=== PATIENT | male | born 1950 | race Caucasian/White ===

== ENCOUNTER 2022-08-22 20:35 | Emergency (ER) | payer MEDICARE, SELFPAY ==
[2022-08-22 20:38] VITALS: BP 138/86; PULSE 121; RESP 20; TEMP 36.3; O2SAT 98; BMI 24.4
--- NOTE | 2022-08-22 20:43 | XRR_ITS ---
PROCEDURE INFORMATION: Exam: XR Chest Exam date and time: 08/22/2022 8:49 PM Age: 72 years old Clinical indication: Shortness of breath; Additional info: Cp TECHNIQUE: Imaging protocol: Radiologic exam of the chest. Views: 1 view. COMPARISON: CR XR chest 1V [id number] 09/11/2018 6:18 AM FINDINGS: Tubes, catheters and devices: Monitor leads project over the chest. Lungs: No significant or acute findings. No consolidation. Pleural spaces: No significant costophrenic angle blunting. No pneumothorax. Heart/Mediastinum: Heart size is normal. Vasculature: Atherosclerotic tortuosity of the thoracic aorta. Bones/joints: No acute osseous abnormality. Soft tissues: Left hemithorax skin fold noted. XR/XR chest 1V portable [id number] IMPRESSION: No acute abnormality demonstrated.
--- NOTE | 2022-08-22 20:43 | ECG_ITS ---
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 Measurements Intervals [place] Rate: 114 P: 81 CA: 167 QRS: 99 QRSD: 112 T: 40 QT: 360 QTc: 498 Interpretive Statements SINUS TACHYCARDIA BORDERLINE RIGHT AXIS DEVIATION [QRS AXIS > 90] INCOMPLETE RIGHT BUNDLE BRANCH BLOCK [90+ ms QRS DURATION, TERMINAL R IN V1/V2, 40+ ms S IN I/aVL/V4/V5/V6] POSSIBLE ANTERIOR MYOCARDIAL INFARCTION , PROBABLY OLD [30 ms Q WAVE IN V3/V4, OR R < 0.2 mV IN V4] ABNORMAL RHYTHM ECG Compared to ECG 09/11/2018 13:22:15 Incomplete right bundle-branch block now present Sinus rhythm no longer present Myocardial infarct finding still present Electronically Signed On 08-22-2022 21:36:03 CDT by Amanda Mckinley M.D. [id number]
--- NOTE | 2022-08-22 20:44 | ECG_ITS ---
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 Measurements Intervals [place] Rate: 101 P: 56 MD: 181 QRS: 79 QRSD: 83 T: 72 QT: 407 QTc: 528 Interpretive Statements SINUS TACHYCARDIA ABNORMAL RHYTHM ECG Compared to ECG 08/22/2022 20:39:49 Incomplete right bundle-branch block no longer present Myocardial infarct finding no longer present Electronically Signed On 08-22-2022 21:35:46 CDT by Amanda Mckinley M.D. [id number]
[2022-08-22 20:54] VITALS: BP 148/95; PULSE 109; RESP 26; O2SAT 100
--- NOTE | 2022-08-22 21:14 | ED_ITS ---
HPI - SOB/Dyspnea General: Chief Complaint: Shortness of Breath/Dyspnea Stated Complaint: SOB\Lings Hurt Time Seen by Provider: 08/22/22 20:43 Source: patient Mode of arrival: ambulatory Limitations: no limitations History of Present Illness: HPI Narrative: 72-year-old male states he fell into some cold water 2 weeks ago he states been having some dyspnea since then he is scared he has pneumonia he is quite anxious here he is tachycardic tachypneic states been having some chest pain and felt like he cannot breathe he denies any cough denies any fever denies any worsening improving factors. Associated symptoms: Deny abdominal pain, chest pain, fever(s), nausea or vomiting Review of Systems Const: Denies: fever(s), chills, body aches or change in appetite Eyes: Denies: eye discomfort ENMT: Denies: throat pain or dental pain Card: Denies: chest pain Resp: Reports: dyspnea; Denies: non-productive cough GI: Denies: abdominal pain, nausea, vomiting or diarrhea : Denies: dysuria Musc: Denies: neck pain or back pain Skin/Breast: Denies: rash Neuro: Denies: headache(s) Physical Exam Const: COMMON NORMALS: no acute distress, patient oriented x3 and healthy appearing GENERAL APPEARANCE: anxious HENMT: COMMON NORMALS: normocephalic and atraumatic HEAD & SCALP: normocephalic and atraumatic Neck/C-Spine: COMMON NORMALS: full ROM and supple Chest: COMMONS NORMALS: normal inspection of the chest and normal palpation of entire chest wall Resp: COMMON NORMALS: normal respiratory effort, No retractions, No use of accessory muscles and clear to auscultation bilaterally EFFORT & INSPECTION: Yes tachypneic AUSCULTATION: clear to auscultation bilaterally Cardio: COMMON NORMALS: regular rhythm and No murmurs present (Cardio) RATE: tachycardic RHYTHM: regular rhythm GI: COMMON NORMALS: Normal to inspection, nondistended, normoactive bowel sounds present, Soft to palpation, non-tender and no masses PALPATION: Yes Soft to palpation Extremity: COMMON NORMALS: normal to inspection and full ROM Neuro: COMMON NORMALS: patient oriented x3, moves all extremities and no focal motor deficits Psych: COMMON NORMALS: mental status grossly normal, Normal thought process present and cooperative THOUGHT PROCESS: Normal thought process present Skin: COMMON NORMALS: no rashes or lesions noted and no wounds GENERAL SKIN EXAM: no rashes or lesions noted Course Vital Signs: Vital signs: Vital Signs Temperature 97.4 F L 08/22/22 20:38 Pulse Rate 91 08/22/22 23:37 Respiratory Rate 18 08/22/22 23:37 Blood Pressure 141/93 08/22/22 23:37 Pulse Oximetry 98 08/22/22 23:37 Oxygen Delivery Me thod Room Air 08/22/22 23:17 MDM - SOB/Dyspnea Medical Decision Making Patient presents with dyspnea with possible pneumonia he is well-appearing here in no distress he has some anxiety we will place him on Keflex he is stable for discharge he is to follow-up with his PCP and return if worsening. Lab Data I reviewed the patient's lab results. 08/22/22 20:50 08/22/22 20:50 Labs/Radiology: Radiology Impressions Chest X-Ray 08/22/22 20:43 IMPRESSION: No acute abnormality demonstrated. Laboratory Results WBC 15.7 10^3/uL (4.0-10.0) H 08/22/22 20:50 RBC 5.09 10^6/uL (4.1-5.3) 08/22/22 20:50 Hgb 16.5 g/dL (11.7-16.6) 08/22/22 20:50 Hct 48.2 % (42.0-52.0) 08/22/22 20:50 MCV 94.7 fl (80-94) H 08/22/22 20:50 MCH 32.4 pg (28.0-34.0) 08/22/22 20:50 MCHC 34.2 g/dL (30.0-36.0) 08/22/22 20:50 RDW 12.6 % (12.1-15.1) 08/22/22 20:50 Plt Count 276 10^3/cmm (130-400) 08/22/22 20:50 MPV 9.6 fL (7.4-10.4) 08/22/22 20:50 Neut % (Auto) 76.7 % 08/22/22 20:50 Lymph % (Auto) 18.0 % 08/22/22 20:50 [place] % (Auto) 4.1 % 08/22/22 20:50 Eos % (Auto) 0.2 % 08/22/22 20:50 Baso % (Auto) 0.4 % 08/22/22 20:50 Neut # (Auto) 12.03 10^3/uL (1.8-7.7) H 08/22/22 20:50 Lymph # (Auto) 2.8 10^3/uL (0.8-4.8) 08/22/22 20:50 [place] # (Auto) 0.7 10^3/uL (0.2-0.9) 08/22/22 20:50 Eos # (Auto) 0.0 10^3/uL (0.0-0.8) 08/22/22 20:50 Baso # (Auto) 0.1 10^3/uL (0.0-0.1) 08/22/22 20:50 Nucleated RBC % (auto) 0 % 08/22/22 20:50 Nucleated RBCs # 0.0 /100WBC 08/22/22 20:50 D-Dimer 0.34 ug/mIFEU (0-0.59) 08/22/22 20:50 Sodium 139 mmol/L (136-145) 08/22/22 20:50 Potassium 4.1 mmol/L (3.5-5.1) 08/22/22 20:50 Chloride 98 mmol/L (98-107) 08/22/22 20:50 Carbon Dioxide 19 mmol/L (22-29) L 08/22/22 20:50 Anion Gap 26.1 (5-19) H 08/22/22 20:50 BUN 16 mg/dL (8-23) 08/22/22 20:50 Creatinine 1.1 mg/dL (0.7-1.2) 08/22/22 20:50 GFR Calculation Not Reportable 08/22/22 20:50 Glucose 181 mg/dL (65-115) H 08/22/22 20:50 Calculated Osmolality 294 mOsm/kg (285-295) 08/22/22 20:50 Calcium 9.7 mg/dL (8.5-10.5) 08/22/22 20:50 Total Bilirubin 0.7 mg/dL (0.15-1.2) 08/22/22 20:50 AST 33 U/L (0-40) 08/22/22 20:50 ALT 50 U/L (0-41) H 08/22/22 20:50 Alkaline Phosphatase 93 U/L (40-130) 08/22/22 20:50 Troponin T Baseline 22 ng/L (0-15) H 08/22/22 20:50 Troponin T 120 Minute 20.27 ng/L (0-15) H 08/22/22 22:35 Delta Troponin T -1.73 ABS# (0-10) L 08/22/22 22:35 NT-Pro-B Natriuret Pep 671 pg/mL (0-125) H 08/22/22 20:50 Total Protein 7.9 g/dL (6.6-8.7) 08/22/22 20:50 Albumin 5.0 g/dL (3.5-5.2) 08/22/22 20:50 Globulin 2.9 g/dL (1.3-4.6) 08/22/22 20:50 Lipase 28 U/L (13-60) 08/22/22 20:50 EKG Data EKG 1: I personally reviewed and interpreted this EKG as follows: EKG Interpretation Date: 08/22/22 EKG interpretation time: 20:39 Interpretation: sinus tach hr [address] or t wave abnormalities qrs 112 qtc 428 Discharge Plan Discharge Patient Disposition: Home Clinical Impression: Dyspnea Condition: Stable Prescriptions: New cephalexin 500 mg capsule 500 mg PO TID 7 Days Qty: 21 0RF No Action gabapentin 600 mg tablet 600 mg PO BID pantoprazole 20 mg tablet,delayed release (DR/EC) 20 mg PO DAILY Levemir U-100 Insulin 100 unit/mL solution 30 unit SUBCUT DAILY lisinopril-hydrochlorothiazide 20-12.5 mg tablet 1 tab PO DAILY sildenafil [Viagra] 50 mg tablet 50 mg PO DAILY PRN testosterone cypionate 200 mg/mL kit 200 mg IM Q7D Discharge Orders: Discharge ED (Routine); Ordered 08/22/22 Ordered By: Parul Lazo Referrals: Jane Dhaliwal [Primary Care Provider] - 4-7 days Discharge Diet: Advance as tolerated Discharge Activity: Resume usual activity Patient Instructions: Dyspnea (ED) Coding Level of Care Code ED Commercial Project Manager for Chg Federico
[2022-08-22 21:30] LABS: Basophils # 0.1 10^3/uL (0.0-0.1); Basophils % 0.4 %; Eosinophils % 0.2 %; Hematocrit 48.2 % (42.0-52.0); Hemoglobin 16.5 g/dL (11.7-16.6); Lymphocytes # 2.8 10^3/uL (0.8-4.8); Mean Corpuscular HGB Conc 34.2 g/dL (30.0-36.0); Mean Corpuscular Hemoglobin 32.4 pg (28.0-34.0); Mean Corpuscular Volume 94.7 fl (80-94); Mean Platelet Volume 9.6 fL (7.4-10.4); Monocytes # 0.7 10^3/uL (0.2-0.9); Monocytes % 4.1 %; Neutrophils # 12.03 10^3/uL (1.8-7.7); Neutrophils % 76.7 %; Nucleated Red Blood Cells % 0 %; Platelet Count 276 10^3/cmm (130-400); Red Blood Count 5.09 10^6/uL (4.1-5.3); Red Cell Distribution Width 12.6 % (12.1-15.1); White Blood Count 15.7 10^3/uL (4.0-10.0)
[2022-08-22 21:31] LABS: Troponin(5th) Baseline 22 ng/L (0-15)
[2022-08-22] MEDS: aspirin 81 mg Chew Tablet 324 MG PO (21:39)
[2022-08-22] MEDS: ondansetron 2 mg/ML SDV 2 mL 4 MG IVP (21:39)
[2022-08-22] MEDS: LORazepam 2 mg/mL INJ 1 mL 0.5 MG IVP (21:39)
[2022-08-22 21:40] LABS: Alanine Aminotransferase 50 U/L (0-41); Alkaline Phosphatase 93 U/L (40-130); Anion Gap 26.1 (5-19); Aspartate Amino Transferase 33 U/L (0-40); Blood Urea Nitrogen 16 mg/dL (8-23); Calcium 9.7 mg/dL (8.5-10.5); Carbon Dioxide 19 mmol/L (22-29); Chloride 98 mmol/L (98-107); Globulin 2.9 g/dL (1.3-4.6); Glucose 181 mg/dL (65-115); NT Pro B Type Natriuretic Pept 671 pg/mL (0-125); Osmolality Calculated 294 mOsm/kg (285-295); Potassium 4.1 mmol/L (3.5-5.1); Sodium 139 mmol/L (136-145); Total Bilirubin 0.7 mg/dL (0.15-1.2); Total Protein 7.9 g/dL (6.6-8.7)
[2022-08-22 21:57] LABS: D Dimer 0.34 ug/mIFEU (0-0.59)
[2022-08-22 22:00] LABS: Lipase 28 U/L (13-60)
[2022-08-22 22:15] VITALS: BP 162/109; PULSE 101; RESP 14; O2SAT 97
--- NOTE | 2022-08-22 22:44 | ECG_ITS ---
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 Measurements Intervals [place] Rate: 100 P: 25 VT: 177 QRS: 92 QRSD: 114 T: 48 QT: 403 QTc: 521 Interpretive Statements SINUS TACHYCARDIA BORDERLINE RIGHT AXIS DEVIATION [QRS AXIS > 90] INCOMPLETE RIGHT BUNDLE BRANCH BLOCK [90+ ms QRS DURATION, TERMINAL R IN V1/V2, 40+ ms S IN I/aVL/V4/V5/V6] ABNORMAL RHYTHM ECG Compared to ECG 08/22/2022 21:25:00 Incomplete right bundle-branch block now present Electronically Signed On 08-23-2022 16:37:03 CDT by Jacobo Barriga M.D. [id number]
[2022-08-22 23:03] LABS: Troponin 5 2HR 20.27 ng/L (0-15)
[2022-08-22 23:04] LABS: Troponin 5 2HR Delta -1.73 ABS# (0-10)
[2022-08-22] MEDS: labetalol 5 mg/mL SDV 20mL 10 MG IVP (23:10)
[2022-08-22 23:17] VITALS: BP 128/102; PULSE 92; RESP 18; O2SAT 97
[2022-08-22] MEDS: cephALEXin 500 mg Capsule PO (23:36)
[2022-08-22 23:37] VITALS: BP 141/93; PULSE 91; RESP 18; O2SAT 98
== END 2022-08-22 23:47 | disposition home or self-care (01) ==
PROVIDERS: Emergency Provider Emergency Medicine; PCP Internal Medicine
DX: R06.00 Dyspnea, unspecified (principal); Z79.4 Long term (current) use of insulin
CPT/HCPCS: 36415; 71045; 80053; 83690; 83880; 84484; 85025; 85378; 93005; 96374; 96375; 99285; J2060; J2405; J3490

== ENCOUNTER 2022-11-11 13:32 | Observation (INO) | payer MEDICARE, SELFPAY ==
[2022-11-11 14:29] VITALS: BMI 23.8
[2022-11-11 14:40] VITALS: BP 167/96; PULSE 95; RESP 18; TEMP 37; O2SAT 96
--- NOTE | 2022-11-11 14:54 | CT_ITS ---
WS: [id number] CT LEFT FOOT, NONCONTRAST HISTORY: Cellulitis, abscess, swelling Technique: All CT scans at [facility] use at least one of these dose optimization techniques: automated exposure control; mA and/or kV adjustment per patient size (includes targeted exams where dose is matched to clinical indication); or iterative reconstruction. DLP: 150.38 mGy.cm COMPARISON: None available. There is a large amount of soft tissue inflammation surrounding the first toe. Greatest at the IP rebecca nt. Along the plantar surface of the distal proximal phalanx and the proximal distal phalanx there ar e erosive changes and loss of the normal cortex. This is the area of greatest soft tissue edema. With out IV contrast cannot comment on abscess. There does appear to be destruction or erosions involving the phalanges of the first toe. The sesamoid bones of the first toe appear intact. Lisfranc articulation is normal. Normal tarsometatarsal alignment. IMPRESSION: 1. Large amount of inflammation and soft tissue edema surrounding the first toe. 2. Erosions and loss of the normal cortex involving the plantar surface of the distal first phalanx a nd the proximal distal phalanx. Erosions associated with gout or osteomyelitis should be considered. Patient would benefit from a nonurgent MRI LEFT foot with attention to the toes with contrast.
--- NOTE | 2022-11-11 15:11 | ED_ITS ---
HPI - Extremity Problem General: Chief complaint: Extremity Injury, Lower Stated complaint: Left foot injury History of Present Illness: Patient is a 72-year-old male that presents to the emergency department with abscess to the left foot. Patient states he stepped on a rock approximately 3 weeks ago. He developed a wound that began draining approximately 1 week later. Patient arrives here 3 weeks after the injury with a 3 mm deep ulcer on the plantar surface of the great toe of the left foot. There is eschar on the dorsal aspect of the foot at the MTP joint of the great toe. 3+ pitting edema and erythema to the foot. Patient has been treating his infection at home with Epsom salt bath And has a documented history of insulin-dependent diabetes but reportedly discontinued use of his insulin back in February 2022. Reports that currently his hemoglobin A1c is 5.2. Patient also has a medical history of high cholesterol, hypertension Associated symptoms: Deny chest pain, fever(s) or rash Review of Systems General: Reports: 10 or more systems reviewed and unremarkable except in HPI and below Const: Denies: fever(s), chills, change in appetite, change in weight, fatigue or malaise Eyes: Denies: change in vision, eye discomfort, eye discharge or eye redness ENMT: Denies: throat pain, enlarged tonsils, odynophagia, hoarseness, ear or mastoid pain, ear discharge, change in hearing, tinnitus, nasal discharge, nasal congestion, post nasal drip or sinus pain Card: Denies: chest pain, palpitations, irregular heart rhythm, edema, dyspnea on exertion, orthopnea or leg pain with exertion Resp: Denies: dyspnea, productive cough, non-productive cough, wheezing, stridor or chest congestion GI: Denies: abdominal pain, nausea, vomiting, dysphagia, diarrhea, constipation, bloating, GI cramping or hematochezia : Denies: flank pain, dysuria, urinary frequency, urinary urgency, urinary hesitancy, oliguria or hematuria Musc: Denies: neck pain, back pain, extremity pain, joint pain, joint swelling, joint redness, joint warmth or muscle weakness Skin/Breast: Denies: rash, pruritus, erythema, photosensitivity or new lesions Neuro: Denies: headache(s), numbness in extremities, weakness in extremities, sensory changes, lack of coordination, difficulty walking, frequent falls, dizziness, confusion, Slurred speech present, difficulty communicating thoughts, seizure-like activity or involuntary movements Endo: Denies: polyuria, polydipsia or tired all the time Av/Lymph: Denies: easy bruising or easy bleeding PFS ED PFSH: Medical History (Updated 11/11/22 @ 17:25 by Danny Casarez MD) Diabetes Hypertension Neuropathy Surgical History (Updated 11/11/22 @ 17:26 by Danny Casarez MD) History of incision and drainage Family History (Updated 11/11/22 @ 17:26 by Danny Casarez MD) Father Alcohol use disorder Denies family history of Diabetes Social History (Updated 11/11/22 @ 17:27 by Danny Casarez MD) Smoking and tobacco status: never smoked Alcohol intake: never Substance/Drug Use: former Physical Exam Const: COMMON NORMALS: no acute distress, patient oriented x3 and alert GENERAL APPEARANCE: cooperative ORIENTATION/CONSCIOUSNESS: Yes awake, Yes oriented to person, Yes oriented to place and Yes oriented to time HENMT: COMMON NORMALS: normocephalic and atraumatic HEAD & SCALP: normocephalic and atraumatic FACE & SINUS: normal facial exam MOUTH: Normal oral and palatal mucosa present THROAT: posterior oropharynx normal Eye: COMMON NORMALS: Equal, round and reactive pupils present, EOMs intact mikey aterally, conjunctivae normal and no scleral icterus GENERAL EYE: appearance normal, both eyes and all related structures ALIGNMENT: Yes alignment normal PERIORBITAL: periorbital findings normal CONJUNCTIVA: Yes conjunctivae normal PUPIL: Yes Equal, round and reactive pupils present Neck/C-Spine: COMMON NORMALS: full ROM GENERAL: Yes normal visual inspection Lymph: LYMPHATIC: no lymphadenopathy noted Chest: COMMONS NORMALS: normal inspection of the chest Breast/axilla inspection: Yes no chest deformity, asymmetry, normal contours, no nodules, masses, tenderness Resp: COMMON NORMALS: normal respiratory effort, No retractions, No use of accessory muscles and clear to auscultation bilaterally EFFORT & INSPECTION: Yes able to speak in complete sentences and Yes symmetric chest movement AUSCULTATION: clear to auscultation bilaterally Cardio: COMMON NORMALS: regular rate, regular rhythm and Peripheral pulses 2+ throughout RATE: regular rate RHYTHM: regular rhythm PERIPHERAL PULSES: Peripheral pulses 2+ throughout GI: COMMON NORMALS: Normal to inspection, nondistended, normoactive bowel sounds present, Soft to palpation, non-tender and No hepatosplenomegaly present INSPECTION: Yes normal to inspection AUSCULTATION: Yes normoactive bowel sounds PALPATION: Yes Soft to palpation and Yes No hepatosplenomegaly present RECTAL EXAM: Yes deferred Extremity: COMMON NORMALS: full ROM and capillary refill normal; negative for normal to inspection GENERAL: Yes normal exam except as noted LEFT LOWER EXTREMITY: Yes foot & digits (3 mm deep ulcer on the plantar surface of the great toe of the left foot. ) Neuro: COMMON NORMALS: patient oriented x3 SENSORIUM/ORIENTATION: Yes alert, Yes oriented to person, Yes oriented to place and Yes oriented to time CRANIAL NERVES: Yes CN normal except as noted Psych: COMMON NORMALS: mental status grossly normal, Normal thought process present, cooperative, activity/motor behavior normal, denies homicidal ideation and denies suicidal ideation THOUGHT PROCESS: Normal thought process present Skin: COMMON NORMALS: no rashes or lesions noted, no wounds and turgor normal GENERAL SKIN EXAM: no rashes or lesions noted and turgor normal Course Vital Signs: Vital signs: Vital Signs Temperature 98.6 F 11/11/22 14:40 Pulse Rate 95 11/11/22 14:40 Respiratory Rate 18 11/11/22 14:40 Blood Pressure 167/96 11/11/22 14:40 Pulse Oximetry 96 11/11/22 14:40 Oxygen Delivery Me thod Room Air 11/11/22 14:40 MDM - Extremity (Nontraumatic) Medical Decision Making Patient has a differential diagnosis of diabetic foot ulcer, abscess and cellulitis, necrotizing fasciitis, Patient had a IV started, fluid bolus given, pain meds given, laboratory evaluation and CT imaging of the foot. Is no leukocytosis however patient does have an elevated CRP of 9.8 and ESR of 16. CT imaging reveals There is a large amount of soft tissue inflammation surrounding the first toe. Greatest at the IP joint. Along the plantar surface of the distal proximal phalanx and the proximal distal phalanx there are erosive changes and loss of the normal cortex. This is the area of greatest soft tissue edema. Without IV contrast cannot comment on abscess. There does appear to be destruction or erosions involving the phalanges of the first toe. The sesamoid bones of the first toe appear intact. Lisfranc articulation is normal. Normal tarsometatarsal alignment. IMPRESSION: 1. Large amount of inflammation and soft tissue edema surrounding the first toe. 2. Erosions and loss of the normal cortex involving the plantar surface of the distal first phalanx and the proximal distal phalanx. Erosions associated with gout or osteomyelitis should be considered. Patient would benefit from a nonurgent MRI LEFT foot with attention to the toes with contrast. Follow-up with Dr. Schmitz and Dr. Casarez. Patient is going to be admitted for observation with diagnosis of osteomyelitis. We are going to hold off on antibiotics at this time. Plan for an MR of the left foot tomorrow to determine further management. Blood cultures have been sent Lab Data 11/11/22 15:13 11/11/22 15:13 Laboratory Results WBC 8.30 10^3/uL (3.29-11.43) 11/11/22 15:13 RBC 4.47 10^6/uL (3.85-5.65) 11/11/22 15:13 Hgb 13.90 g/dL (11.27-16.99) 11/11/22 15:13 Hct 41.5 % (37-53) 11/11/22 15:13 MCV 92.8 fl (82-101) 11/11/22 15:13 MCH 31.1 pg (27-33) 11/11/22 15:13 MCHC 33.5 g/dL (30-55) 11/11/22 15:13 RDW 11.9 % (12.1-15.1) L 11/11/22 15:13 Plt Count 453 10^3/cmm (157-399) H 11/11/22 15:13 MPV 9.0 fL (7.4-10.4) 11/11/22 15:13 Neut % (Auto) 78.1 % 11/11/22 15:13 Lymph % (Auto) 16.4 % 11/11/22 15:13 [place] % (Auto) 4.1 % 11/11/22 15:13 Eos % (Auto) 0.8 % 11/11/22 15:13 Baso % (Auto) 0.2 % 11/11/22 15:13 Neut # (Auto) 6.48 10^3/uL (1.8-7.7) 11/11/22 15:13 Lymph # (Auto) 1.4 10^3/uL (0.8-4.8) 11/11/22 15:13 [place] # (Auto) 0.3 10^3/uL (0.2-0.9) 11/11/22 15:13 Eos # (Auto) 0.1 10^3/uL (0.0-0.8) 11/11/22 15:13 Baso # (Auto) 0.0 10^3/uL (0.0-0.1) 11/11/22 15:13 Nucleated RBC % (auto) 0 % 11/11/22 15:13 Nucleated RBCs # 0.0 /100WBC 11/11/22 15:13 ESR 16 mm/hr (0-10) H 11/11/22 15:13 Sodium 142 mmol/L (136-145) 11/11/22 15:13 Potassium 3.8 mmol/L (3.5-5.1) 11/11/22 15:13 Chloride 103 mmol/L (98-107) 11/11/22 15:13 Carbon Dioxide 25 mmol/L (22-29) 11/11/22 15:13 Anion Gap 17.8 (5-19) 11/11/22 15:13 BUN 13 mg/dL (8-23) 11/11/22 15:13 Creatinine 0.8 mg/dL (0.7-1.2) 11/11/22 15:13 GFR Calculation Not Reportable 11/11/22 15:13 Glucose 147 mg/dL (65-115) H 11/11/22 15:13 Calculated Osmolality 297 mOsm/kg (285-295) H 11/11/22 15:13 Calcium 9.7 mg/dL (8.5-10.5) 11/11/22 15:13 Total Bilirubin 0.2 mg/dL (0.15-1.2) 11/11/22 15:13 AST 12 U/L (0-40) 11/11/22 15:13 ALT 9 U/L (0-41) 11/11/22 15:13 Alkaline Phosphatase 89 U/L (40-130) 11/11/22 15:13 C-Reactive Protein 9.8 mg/L (0.0-4.9) H 11/11/22 15:13 Total Protein 8.5 g/dL (6.6-8.7) 11/11/22 15:13 Albumin 4.7 g/dL (3.5-5.2) 11/11/22 15:13 Globulin 3.8 g/dL (1.3-4.6) 11/11/22 15:13 Discharge Plan Discharge Patient Disposition: Admitted As Inpatient Clinical Impression: Osteomyelitis, Puncture wound of foot Condition: Stable Coding Level of Care Code ED Item Processing Clerk for Gina Caballero
[2022-11-11] MEDS: sodium chloride 0.9% 500 ML IV (15:27)
[2022-11-11] MEDS: ketorolac 30 mg/mL INJ IVP (15:29)
[2022-11-11 15:30] LABS: Basophils % 0.2 %; Eosinophils # 0.1 10^3/uL (0.0-0.8); Eosinophils % 0.8 %; Hematocrit 41.5 % (37-53); Lymphocytes # 1.4 10^3/uL (0.8-4.8); Lymphocytes % 16.4 %; Mean Corpuscular HGB Conc 33.5 g/dL (30-55); Mean Corpuscular Hemoglobin 31.1 pg (27-33); Mean Corpuscular Volume 92.8 fl (82-101); Monocytes # 0.3 10^3/uL (0.2-0.9); Monocytes % 4.1 %; Neutrophils # 6.48 10^3/uL (1.8-7.7); Neutrophils % 78.1 %; Nucleated Red Blood Cells % 0 %; Platelet Count 453 10^3/cmm (157-399); Red Blood Count 4.47 10^6/uL (3.85-5.65); Red Cell Distribution Width 11.9 % (12.1-15.1)
[2022-11-11 15:43] LABS: Alanine Aminotransferase 9 U/L (0-41); Albumin Level 4.7 g/dL (3.5-5.2); Alkaline Phosphatase 89 U/L (40-130); Anion Gap 17.8 (5-19); Aspartate Amino Transferase 12 U/L (0-40); Blood Urea Nitrogen 13 mg/dL (8-23); C Reactive Protein 9.8 mg/L (0.0-4.9); Calcium 9.7 mg/dL (8.5-10.5); Carbon Dioxide 25 mmol/L (22-29); Chloride 103 mmol/L (98-107); Globulin 3.8 g/dL (1.3-4.6); Glucose 147 mg/dL (65-115); Osmolality Calculated 297 mOsm/kg (285-295); Potassium 3.8 mmol/L (3.5-5.1); Sodium 142 mmol/L (136-145); Total Bilirubin 0.2 mg/dL (0.15-1.2); Total Protein 8.5 g/dL (6.6-8.7)
--- NOTE | 2022-11-11 15:43 | PC.PHAR ---
pt and pts girlfriend verified meds entered-pt states he hasnt taken his bp,insulin or testosterone shot for a year now states he is only taking the ultram and otc meds entered-
[2022-11-11 15:52] LABS: Erythrocyte Sedimentation Rate 16 mm/hr (0-10)
[2022-11-11] MEDS: fentaNYL 50 mcg/mL INJ 2mL IVP (17:03)
--- NOTE | 2022-11-11 17:03 | P.HP_ITS ---
Providers/Chief Complaint Admitting Physician: Danny Casarez MD Primary Care Provider: Jane Dhaliwal Chief Complaint: Left foot injury History of Present Illness Chet Harman is a 72 year old male with a past medical history significant for diet controlled type 2 diabetes mellitus who presents with worsening infection of left foot. Patient reports he injured his left toe around 3 weeks ago. He is slightly tangential on the history but it seems that he stepped on something while walking on a gravel road. They have been cleaning it and initially got better but then worsened. Reports for the last several days the pain has gotten severe, 10 out of 10. Reports difficulty ambulating. Review of Systems Narrative: A complete review of systems was obtained and is negative except as stated in HPI. Medications/Allergies Home Medications Medication Instructions Recorded Confirmed Last Taken Type acetaminophen 500 mg tablet 1,000 mg PO QID PRN Pain 11/11/22 11/11/22 Unknown History cholecalciferol (vitamin D3) 25 25 mcg PO DAILY 11/11/22 11/11/22 Unknown History mcg (1,000 unit) tablet (Vitamin D3) diphenhydramine HCl 25 mg capsule 75 mg PO BID PRN Itching 11/11/22 11/11/22 Unknown History (Benadryl) tramadol 50 mg tablet 50 mg PO QID PRN Pain 11/11/22 11/11/22 11/10/22 History out of med 11/10/22 Allergies Allergy/AdvReac Type Severity Reaction Status Date / Time No Known Allergies Allergy Verified 11/11/22 15:40 PFSH Acute PFSH: Medical History (Updated 11/11/22 @ 17:25 by Danny Casarez MD) Diabetes Hypertension Neuropathy Surgical History (Updated 11/11/22 @ 17:26 by Danny Casarez MD) History of incision and drainage Family History (Updated 11/11/22 @ 17:26 by Danny Casarez MD) Father Alcohol use disorder Denies family history of Diabetes Social History (Updated 11/11/22 @ 17:27 by Danny Casarez MD) Smoking and tobacco status: never smoked Alcohol intake: never Substance/Drug Use: former Vitals/I&O/Wt Last Vital Signs Temp 98.6 F 11/11/22 14:40 Pulse 95 11/11/22 14:40 Resp 18 11/11/22 14:40 BP 167/96 11/11/22 14:40 Pulse Ox 96 11/11/22 14:40 O2 Del Method Room Air 11/11/22 14:40 Weight last 48 hrs Weight 77.564 kg Physical Exam Narrative: General: Patient is awake. Alert. Verbose. Head: Normocephalic. Atraumatic. EOM intact. Neck: No JVD. Cardiovascular: RRR. No gallops. No murmurs. Lungs: Clear to auscultation, no use of accessory muscles, no crackles or wheezes. Skin: No jaundice. No rashes. Abdomen: Normal bowel sounds, abdomen soft and nontender. Extremities: No cyanosis or clubbing. Left foot is swollen with overlying erythema distally towards great toe. Great toe with multiple puncture sites with drainage. Very tender to palpation. Diffusely swollen. Infected appearing. Musculoskeletal: Normal muscular development for demographic. Neurological: Moves all 4 extremities. No myoclonus. Pressured speech. Data 11/11/22 15:13 11/11/22 15:13 A&P Assessment and plan (1) Puncture wound of foot: Puncture wound associated with severe cellulitis, suspected osteomyelitis Orthopedics consulted, appreciate recommendations MRI to evaluate for osteomyelitis Obtaining bone biopsy if osteo is present seems unlikely going into Holiday weekend, patient eager to start treatment, will start antibiotics Wound care Analgesics as needed (2) Diabetes: Reports last A1c 6 months ago was in the 5s Diet controlled Repeat A1c (3) Hypertension: Blood pressure elevated, ensure appropriate analgesics (4) Neuropathy: Reports he takes tramadol every 6 hours scheduled at home Reports she feels like he is starting to withdrawal from missing doses today Start home tramadol Plan DVT prophylaxis: Lovenox CODE STATUS: Full code Attestations Medical Necessity Statement*: Patient presents with severe infection of left foot with expected hospitalization not to cross 2 midnights for orthopedic evaluation, MRI, IV antibiotics, and supportive care. Coding Level of Care Code Acute Code for [facility] Diagnoses Puncture wound of foot S91.339A Diabetes E11.9 Hypertension I10 Neuropathy G62.9
[2022-11-11] MEDS: TRAMadol 50 mg Tablet PO ×2 (17:37→23:28)
[2022-11-11 20:46] VITALS: BP 170/94; PULSE 79; RESP 16; TEMP 36.6; O2SAT 100
[2022-11-11 23:38] VITALS: BP 190/109; PULSE 88; RESP 16; TEMP 37.1; O2SAT 100
[2022-11-11] MEDS: hyDRALAzine 25 mg Tablet PO (23:43)
--- NOTE | 2022-11-12 00:14 | MRR_ITS ---
PROCEDURE INFORMATION: Exam: MR Left Lower Extremity Without and With Contrast; Forefoot Exam date and time: 11/12/2022 12:04 PM Age: 72 years old Clinical indication: Edema and swelling, leg or foot; Yes, it is localized; Additional info: Rule out osteomyelitis TECHNIQUE: Imaging protocol: MR of the left foot without and with contrast. Exam focused on the forefoot. Contrast material: MULTIHANCE; Contrast volume: 17 ml; Contrast route: INTRAVENOUS (IV); COMPARISON: CT foot LT wo con* [id number] 11/11/2022 3:14 PM FINDINGS: The examination is limited by motion degradation. There is diffuse soft tissue swelling and subcutaneous edema with overlying skin thickening. There is a deep soft tissue ulceration along the plantar surface of the hallux interphalangeal joint with a large amount of subjacent phlegmonous change no convincing organized collection is identified. There is no soft tissue mass. There is severe reactive inflammation of the flexor hallucis longus tendon at the level of the ulceration/phlegmon. No acute tendon or ligament injury is identified. There is no MR evidence of acute fracture or dislocation. Alignment is anatomic. There is pronounced bone marrow edema in the hallux proximal and distal phalanges, which is clearly evident on the fluid sensitive and T1 weighted sequences. There are mild degenerative changes. Periarticular erosive/destructive changes are noted about the hallux interphalangeal joint. No lytic or blastic lesion is seen. There is loculated fluid and synovitis in the hallux interphalangeal joint. MR/MR foot LT wo/w con [id number] IMPRESSION: 1. Acute osteomyelitis of the hallux phalanges with findings concerning for septic arthritis of the interphalangeal joint, as described above. 2. Additional findings, as above.
[2022-11-12 01:42] VITALS: BP 161/89
[2022-11-12 03:37] VITALS: BP 170/102; PULSE 90; RESP 16; TEMP 37; O2SAT 99
[2022-11-12 04:18] VITALS: BP 160/98
[2022-11-12 04:43] LABS: Basophils % 0.4 %; Eosinophils # 0.1 10^3/uL (0.0-0.8); Eosinophils % 1.5 %; Hematocrit 38.2 % (37-53); Lymphocytes # 2.1 10^3/uL (0.8-4.8); Lymphocytes % 27.3 %; Mean Corpuscular HGB Conc 33.8 g/dL (30-55); Mean Corpuscular Hemoglobin 31.5 pg (27-33); Mean Corpuscular Volume 93.2 fl (82-101); Mean Platelet Volume 8.7 fL (7.4-10.4); Monocytes # 0.6 10^3/uL (0.2-0.9); Monocytes % 7.4 %; Neutrophils # 4.92 10^3/uL (1.8-7.7); Nucleated Red Blood Cells % 0 %; Platelet Count 382 10^3/cmm (157-399); Red Cell Distribution Width 11.8 % (12.1-15.1); White Blood Count 7.81 10^3/uL (3.29-11.43)
[2022-11-12 05:09] LABS: Estmated Average Glucose 123; Hemoglobin A1C 5.9 % (4.0-6.0)
[2022-11-12] MEDS: TRAMadol 50 mg Tablet PO ×3 (05:16→18:13)
[2022-11-12 07:35] VITALS: BP 171/104; PULSE 95; RESP 17; TEMP 36.8; O2SAT 100
--- NOTE | 2022-11-12 07:55 | P.CONIM_ITS ---
Patient was seen evaluated with PA. Patient had family present on evaluation. Patient has a infection of the left great toe. Reviewed MRIs and shows osteo of the distal phalanx and proximal phalanx. No extension into the metatarsal. Patient is adamant this point time of trying for limb salvage and he would like for an I&D and bone cultures and elects for this I did offer an amputation as this would likely be the more curative and one-time surgery but he would like for limb salvage and as result through shared decision making he elects to proceed with a left foot irrigation and debridement and bone cultures. He will be n.p.o. at midnight tonight continue to hold antibiotics. We will take patient to surgery tomorrow. Patient and family understand the risk benefits complication alternatives surgery elects proceed with surgical intervention they understand this may not be 100% curative and may require further surgeries down the road understanding these risks they elect to proceed with surgical intervention all questions answered. To the OR tomorrow Rocky Schmitz, Providers/Reason For Consult Consulting Physician/Specialty*: Dr. Schmitz Reason for Consult*: Left great toe wound with possible osteomyelitis Requesting Physician: RYLIE-Dr. Romero Attending Physician: Danny Casarez MD Primary Care Provider: Jane Dhaliwal History of Present Illness History of Present Illness Patient is a 72 year old male with a past medical history significant for diet controlled type 2 diabetes mellitus who presents with worsening infection of left foot. Patient states that approximately 3 weeks ago he was walking on a gravel road in some sandals and stepped on a rock that made a wound on the bottom of his left great toe. They have been trying to take care of wound by cleaning it and soaking it in Epsom salt. Wound was improving some but over the last couple days it got worse. He reports pain whenever he ambulates. Pain is rated as severe and a 10 out of 10. There has been some puslike drainage from wound. 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 Denies any fevers but does report having some chills. Review of Systems General: Reports: 10 or more systems reviewed and unremarkable except in HPI and below Const: Reports: chills; Denies: fever(s) Medications/Allergies Home Medications Medication Instructions Recorded Confirmed Last Taken Type acetaminophen 500 mg tablet 1,000 mg PO QID PRN Pain 11/11/22 11/11/22 Unknown History cholecalciferol (vitamin D3) 25 25 mcg PO DAILY 11/11/22 11/11/22 Unknown History mcg (1,000 unit) tablet (Vitamin D3) diphenhydramine HCl 25 mg capsule 75 mg PO BID PRN Itching 11/11/22 11/11/22 Unknown History (Benadryl) tramadol 50 mg tablet 50 mg PO QID PRN Pain 11/11/22 11/11/22 11/10/22 History out of med 11/10/22 Allergies Allergy/AdvReac Type Severity Reaction Status Date / Time No Known Allergies Allergy Verified 11/11/22 15:40 Current Medications Generic Name Dose Route Start Last Admin Trade Name Freq PRN Reason Stop Dose Admin Hydralazine HCl 25 mg 11/11/22 23:08 11/11/22 23:43 Hydralazine 25 Mg Tablet PO 25 mg QID PRN Administration HYPERTENSION Tramadol HCl 50 mg 11/11/22 17:30 11/12/22 05:16 Tramadol 50 Mg Tablet PO 50 mg Q6H DIANA Administration PFSH Acute PFSH: Medical History Diabetes Hypertension Neuropathy Surgical History History of incision and drainage Family History Father Alcohol use disorder Denies family history of Diabetes Social History Smoking and tobacco status: never smoked Alcohol intake: never Substance/Drug Use: former Vitals/I&O/Wt Last Vital Signs Temp 98.3 F 11/12/22 07:35 Pulse 95 11/12/22 07:35 Resp 17 11/12/22 07:35 BP 171/104 11/12/22 07:35 Pulse Ox 100 11/12/22 07:35 O2 Del Method Room Air 11/12/22 07:35 11/11/22 11/12/22 11/12/22 22:59 06:59 14:59 Intake Total 500 / 500 Balance 500 / 500 Weight last 48 hrs Weight 171 lb Physical Exam Const: COMMON NORMALS: patient oriented x3 and alert GENERAL APPEARANCE: cooperative Resp: COMMON NORMALS: normal respiratory effort EFFORT & INSPECTION: Yes able to speak in complete sentences and No respiratory distress Extremity: NARRATIVE EXTREMITY EXAM: Left foot?erythema, warmth and swelling of the great toe that is localized in the forefoot region. 3 mm open stage III ulcer wound on plantar surface of the great toe. Small amount of purulent drainage seen. There is also another open wound on the lateral side of great toe with purulent drainage as well. No erythema in midfoot or hindfoot region. No red streaking up the leg seen. Neuro: COMMON NORMALS: patient oriented x3 SENSORIUM/ORIENTATION: Yes alert Data 11/12/22 04:20 11/11/22 15:[address]: Radiologist's impression: [address] [place] [address] CT Scan Report Signed Patient: Chet Harman Unit #: [id number] : [id number] Age/Sex: 72 / M ADM Date: 11/11/22 Loc: ER Room/Bed: Attending Dr: Ordering Provider/Ordering MD: Watson Burdick APRN Date of Service: 11/11/22 Procedure(s): CT foot LT wo con* [id number] Accession Number(s): [id number] Report Number: [id number] WS: [id number] CT LEFT FOOT, NONCONTRAST HISTORY: Cellulitis, abscess, swelling Technique:? All CT scans at [facility] use at least one of these dose optimization techniques: automated exposure control; mA and/or kV adjustment per patient size (includes targeted exams where dose is matched to clinical indication); or iterative reconstruction. DLP: 150.38 mGy.cm COMPARISON: None available. There is a large amount of soft tissue inflammation surrounding the first toe. Greatest at the IP joint. Along the plantar surface of the distal proximal phalanx and the proximal distal phalanx there are erosive changes and loss of the normal cortex. This is the area of greatest soft tissue edema. Without IV contrast cannot comment on abscess. There does appear to be destruction or erosions involving the phalanges of the first toe. The sesamoid bones of the first toe appear intact. Lisfranc articulation is normal. Normal tarsometatarsal alignment. IMPRESSION: 1. Large amount of inflammation and soft tissue edema surrounding the first toe. 2. Erosions and loss of the normal cortex involving the plantar surface of the distal first phalanx and the proximal distal phalanx. Erosions associated with gout or osteomyelitis should be considered. Patient would benefit from a nonurgent MRI LEFT foot with attention to the toes with contrast. Dictated By: Lupe Turner DO Signed By: Lupe Turner DO Signed Date/Time: 11/11/22 8646 A&P Assessment and plan (1) Puncture wound of foot: Puncture wound associated with severe cellulitis, suspected osteomyelitis -Labs and CT foot reviewed-WBC 7.81, ESR 16, CRP 9.8 -Wound culture pending -Start Antibiotics per hospitalist -Nonweightbearing on left foot -Wound care -MRI of Left foot pending. Waiting on MRI to determine further treatment plan and possible surgery. Coding Level of Care Code Acute Code for [facility] Diagnoses Puncture wound of foot S91.339A
[2022-11-12] MEDS: gadobenate dimeglumine 20 mL vial IV (13:06)
[2022-11-12 16:13] VITALS: BP 162/94; PULSE 78; RESP 16; TEMP 36.8; O2SAT 98
--- NOTE | 2022-11-12 17:09 | PM.PN ---
Subjective Subjective: Patient reports continued pain in his foot but states overnight the swelling went down significantly. Denies nausea, emesis, chest pain or abdominal pains. Medications: Reviewed: Yes Vitals/I&O/Wt Last Vital Signs Temp 98.3 F 11/12/22 16:13 Pulse 78 11/12/22 16:13 Resp 16 11/12/22 16:13 BP 162/94 11/12/22 16:13 Pulse Ox 98 11/12/22 16:13 O2 Del Method Room Air 11/12/22 16:13 Weight last 48 hrs Weight 77.564 kg Physical Exam Narrative: General: Patient is awake. Alert. Head: Normocephalic. Atraumatic. EOM intact. Neck: No JVD. Cardiovascular: RRR. No gallops. No murmurs. Lungs: Clear to auscultation, no use of accessory muscles, no crackles or wheezes. Skin: No jaundice. No rashes. Abdomen: Normal bowel sounds, abdomen soft and nontender. Extremities: No cyanosis or clubbing. Left foot swelling has significantly improved. Cellulitic findings still present including erythema and tenderness to palpation. . Neurological: Moves all 4 extremities. No myoclonus. Data 11/12/22 04:20 11/11/22 15:13 A&P Assessment and plan (1) Puncture wound of foot: Puncture wound associated with severe cellulitis, suspected osteomyelitis Orthopedics consulted, appreciate recommendations MRI pending Ortho willing to do bone bx vs surgery pending MRI results Wound care Analgesics as needed (2) Diabetes: A1c well controlled (3) Hypertension: Blood pressure elevated, ensure appropriate analgesics (4) Neuropathy: Continue home tramadol Plan DVT prophylaxis: Lovenox CODE STATUS: Full code Attestations Medical Necessity Statement*: Patient requires ongoing hospitalization for further imaging for suspected acute osteomyelitis, ortho evaluation, and supportive care. Coding Level of Care Code Acute Code for [facility] Diagnoses Puncture wound of foot S91.339A Diabetes E11.9 Hypertension I10 Neuropathy G62.9
[2022-11-12] MEDS: acetaminophen 325 mg Tablet 650 MG PO (18:14)
[2022-11-12 20:45] VITALS: BP 143/81; PULSE 78; RESP 18; TEMP 36.7; O2SAT 98
[2022-11-13] VITALS (17 sets, daily range): BP systolic 106–183; BP diastolic 69–94; PULSE 55–92; RESP 15–24; TEMP 36.3–37.2; O2SAT 95–100
[2022-11-13] MEDS: TRAMadol 50 mg Tablet PO ×3 (00:06→23:19)
[2022-11-13] MEDS: acetaminophen 325 mg Tablet 650 MG PO ×3 (00:06→23:19)
[2022-11-13 05:42] LABS: Basophils # 0.1 10^3/uL (0.0-0.1); Basophils % 0.6 %; Eosinophils # 0.2 10^3/uL (0.0-0.8); Eosinophils % 2.2 %; Hematocrit 34.5 % (37-53); Lymphocytes # 3.2 10^3/uL (0.8-4.8); Lymphocytes % 38.2 %; Mean Corpuscular Hemoglobin 30.7 pg (27-33); Mean Platelet Volume 8.8 fL (7.4-10.4); Monocytes # 0.7 10^3/uL (0.2-0.9); Monocytes % 7.9 %; Neutrophils % 50.9 %; Nucleated Red Blood Cells % 0 %; Platelet Count 341 10^3/cmm (157-399); Red Blood Count 3.71 10^6/uL (3.85-5.65); Red Cell Distribution Width 11.9 % (12.1-15.1); White Blood Count 8.25 10^3/uL (3.29-11.43)
[2022-11-13 06:11] LABS: Albumin Level 3.6 g/dL (3.5-5.2); Anion Gap 12.4 (5-19); Blood Urea Nitrogen 10 mg/dL (8-23); Calcium 8.9 mg/dL (8.5-10.5); Carbon Dioxide 24 mmol/L (22-29); Chloride 109 mmol/L (98-107); Glucose 95 mg/dL (65-115); Phosphorus 3.3 mg/dL (2.5-4.5); Potassium 3.4 mmol/L (3.5-5.1); Sodium 142 mmol/L (136-145)
[2022-11-13] MEDS: morphine 4 mg/mL SDV 1 mL 2 MG IVP (08:43)
[2022-11-13] MEDS: sodium chloride 0.9% 1,000 ML 30 ML IV (10:33)
[2022-11-13] MEDS: ketorolac 30 mg/mL INJ IVP (10:41)
[2022-11-13] MEDS: acetaminophen 1,000 MG/100 ML PIGGYBACK 400 MG IV (10:41)
[2022-11-13] MEDS: scopolamine 1.5 Patch 1 PATCH TRANSDERMA (10:54)
--- NOTE | 2022-11-13 11:09 | P.ANESASSM_ITS ---
Pre-Anesthetic Assessment Height/Weight: Height 1.8 m Weight 77.564 kg Temp Pulse Resp BP Pulse Ox O2 Del Method 98.2 F 77 16 140/89 99 Room Air 11/13/22 10:24 11/13/22 10:24 11/13/22 10:24 11/13/22 10:24 11/13/22 10:24 11/13/22 10:24 Preop Diagnosis: Osteomyelitis of left great toe Operation Date: 11/13/22 11:10 Proposed Procedures p Incision & Drainage Lower Extremity(Left) - Rocky Nadir, DO Familial anesthetic complications: none Was Beta Cody taken within 24 hours: N/A Was Clonidine taken within 24 hours: N/A Last intake: Intake Last Liquid Date 11/12/22 Last Liquid Time 23:55 Last Solid Date 11/12/22 Last Solid Time 17:00 Social No alcohol and No tobacco Exam alert, oriented x 3, clear to auscultation bilaterally and regular rate & rhythm Airway Mallampati: Class II CV/HEM Hypertension Metabolic Diabetes Mellitus Anesthetic Plan ASA status: 3 Anesthesia: MAC Risk of > 500 ml blood loss (7ml/kg in children): No Medications/Allergies Home Medications Medication Instructions Recorded Confirmed Last Taken Type acetaminophen 500 mg tablet 1,000 mg PO QID PRN Pain 11/11/22 11/11/22 Unknown History cholecalciferol (vitamin D3) 25 25 mcg PO DAILY 11/11/22 11/11/22 Unknown History mcg (1,000 unit) tablet (Vitamin D3) diphenhydramine HCl 25 mg capsule 75 mg PO BID PRN Itching 11/11/22 11/11/22 Unknown History (Benadryl) tramadol 50 mg tablet 50 mg PO QID PRN Pain 11/11/22 11/11/22 11/10/22 History out of med 11/10/22 Allergies Allergy/AdvReac Type Severity Reaction Status Date / Time No Known Allergies Allergy Verified 11/11/22 15:40 Current Medications Generic Name Dose Route Start Last Admin Trade Name Freq PRN Reason Stop Dose Admin Acetaminophen 650 mg 11/12/22 11:16 11/13/22 00:06 Acetaminophen 325 Mg Tablet PO 650 mg Q6H PRN Administration MILD PAIN Hydralazine HCl 25 mg 11/11/22 23:08 11/11/22 23:43 Hydralazine 25 Mg Tablet PO 25 mg QID PRN Administration HYPERTENSION Sodium Chloride 1,000 mls @ 30 mls/hr 11/13/22 10:30 11/13/22 10:33 Sodium Chloride 0.9% IV 11/14/22 10:29 30 mls/hr .Q24H DIANA Administration Tramadol HCl 50 mg 11/11/22 17:30 11/13/22 05:43 Tramadol 50 Mg Tablet PO Not Given Q6H DIANA PFSH Anesthesia Medical History Diabetes Hypertension Neuropathy Surgical History History of incision and drainage Family History Father Alcohol use disorder Denies family history of Diabetes Social History Smoking and tobacco status: never smoked Alcohol intake: never Substance/Drug Use: former Data Anesthesia 11/13/22 05:24 11/13/22 05:10 Short CBC 11/11/22 11/12/22 11/13/22 Range/Units 15:13 04:20 05:24 WBC 8.30 7.81 8.25 (3.29-11.43) 10^3/uL Hgb 13.90 12.90 11.40 (11.27-16.99) g/dL Hct 41.5 38.2 34.5 L (37-53) % MCV 92.8 93.2 93.0 (82-101) fl Plt Count 453 H 382 341 (157-399) 10^3/cmm Neut % (Auto) 78.1 63.0 50.9 % Neut # (Auto) 6.48 4.92 4.20 (1.8-7.7) 10^3/uL BMP 11/11/22 11/13/22 15:13 05:10 Sodium 142 142 Potassium 3.8 3.4 L Chloride 103 109 H Carbon Dioxide 25 24 BUN 13 10 Creatinine 0.8 0.8 Glucose 147 H 95 Calcium 9.7 8.9 Liver Function 11/11/22 11/13/22 Range/Units 15:13 05:10 Total Bilirubin 0.2 (0.15-1.2) mg/dL AST 12 (0-40) U/L ALT 9 (0-41) U/L Alkaline Phosphatase 89 (40-130) U/L Albumin 4.7 3.6 (3.5-5.2) g/dL [facility] 11/11/22 11/11/22 15:13 15:13 ESR 16 H C-Reactive Protein 9.8 H Cardiac Studies: No Data to Display
--- NOTE | 2022-11-13 11:17 | W.PM.OPSUD ---
Surgery/Procedure H&P Update DATE OF PROCEDURE: November 13, 2022 DATE H&P PERFORMED: 11/12/22 CHANGES TO PREVIOUS DOCUMENTATION: None. No change in HPI from consult note on 11/12/2022. Patient does have osteomyelitis of the distal and proximal phalanx. We talked about treatment options for his nonoperative and operative intervention he would like to undergo surgery he would like to save his toe if at all possible. He is offered a left great toe irrigation debridement with bone cultures versus a possible amputation of the left great toe at the MTP joint. We talked about if the infection is to significant he would like me to just take the toe off otherwise he like for me to salvage as much as possible is left this up to my determination intraoperatively. We are understanding and in agreement on this plan. Patient understands the risk benefits complication alternatives with surgery elects proceed with surgical intervention all questions answered. PREOP DIAGNOSIS: Osteomyelitis of left great toe PRIMARY INDICATION FOR PROCEDURE: Osteomyelitis left great toe with diabetic ulceration and infection PLANNED PROCEDURE: Operation Date: 11/13/22 11:10 Proposed Procedures p Incision & Drainage Lower Extremity(Left) - Rocky Schmitz DO
[2022-11-13] MEDS: ROPivacaine 0.5% SDV 30 mL 50 MG INJECTION (12:03)
[2022-11-13] MEDS: lidocaine 2% INJ 20 mL 10 ML INJECTION (12:03)
--- NOTE | 2022-11-13 12:25 | PC.NURSE ---
Oral airway removed
--- NOTE | 2022-11-13 12:28 | PM.OP ---
Operative Report Date of procedure: November 13, 2022 Pre-op diagnosis: Left great toe abscess with osteomyelitis of distal phalanx and proximal phalanx of the great toe Post-op diagnosis: Same Procedure done: Left great toe amputation at metatarsophalangeal joint Specimens removed/disposition: Left great toe amputation removed sent for pathology Surgeon: Rocky Schmitz DO Senior Compensation Consultant: Danny Schmitz PA-C PA was necessary for assistance in retraction and protection of neurovascular structures as well as to assist in leg position and assist in wound closure. Estimated blood loss: 5 mL Esmarch tourniquet 14 minutes IV fluids: 400 mL Complications: None Findings: See operative report narrative Condition: stable Disposition: floor Brief History: Patient is 72-year-old gentleman with a left great toe infection. Was admitted by the hospitalist and orthopedics consulted for acute left great toe infection with advanced imaging work-up demonstrating osteomyelitis of the distal phalanx and proximal phalanx stopping at the level of the MTP joint. We talked about treatment options in detail he like for toe salvage as much as possible but he understands that if the infection is too significant he understands his quicker way of recovery would be a left great toe amputation at the level of the MTP joint and ultimately he understands and wishes to proceed with surgical intervention. We talked about treatment options in detail he understands the risk benefits complication alternatives to surgery and through shared decision making he elects to proceed with a left great toe irrigation debridement with possible left great toe amputation if significant infection per his wishes. Consent was obtained in preop. All questions answered. Procedure: Patient was seen in the preoperative holding area. Consent was reviewed and signed with patient. Correct extremity/digit was marked. Patient was then seen evaluated by anesthesia once cleared for surgery was taken back to the operative suite once again we agreed through shared decision-making he states that if theinfections too bad he'd rather have an amputation then having multiple other repeat surgeries. In agreement on this he was taken back to the operative suite. He was kept on the [facility] his left lower extremity was placed onto a bone foam. He underwent anesthesia per the anesthesia department once appropriately anesthetized the left lower extremity was then prepped and draped in standard orthopedic fashion. Final timeout performed. We held off on antibiotics in case of intraoperative bone cultures, disease had been held preoperatively. Left lower extremity was then elevated I then utilized an Esmarch to perform an Esmarch tourniquet to the left lower ankle. Once this was up I then evaluated patient's wound. Patient had a large plantar wound over the left great toe as well as a medial wound over the proximal phalanx both these tunnel straight to bone I utilized a drill bit with plan to evaluate the integrity of the bone and the drill bit went directly through the bone demonstrating significantly soft and destructive osteomyelitis as result given the extensiveness of the infection and foul-smelling drainage as well as the poor soft tissue envelope with 2 wounds one plantar and medial near the webspace I directed at this point in time the best treatment option for this patient will be a left great toe amputation at the MTP joint which we agreed upon preoperatively. As result I then planned a standard [place] incision at the MTP joint. This was marked out appropriately I then subsequently utilized sharp scalpel excision to excise the skin and tissue directly down to bone. At the level of the MTP joint. I then utilized a towel clip at the end of the toe to maintain control of the toe distally and then subsequently excised at the MTP joint performed a disarticulation of all soft tissue. The EHL and FHL were held under direct tension and transected and retracted proximally. Care was performed to maintain hemostasis and did perform traction neurectomies at the site of amputation to help with decrease of postoperative neuroma formation. I then completed my amputation of the left great toe and this was sent for culture and pathology. I then will I utilized a rongeur as well as sharp scalpel excision performed and complete debridement of the entire wound bed to make sure there was no residual signs of infection this was taken to all healthy tissue this was debrided of skin subcutaneous tissue fat fascia tendon and bone utilized a rongeur to contour and remove any of the cartilage on the MTP joint it could have been contaminant with septic arthritis. As result once this was done I then thoroughly irrigated the wound bed tourniquet deflated hemostasis at satisfactory. I then closed the left great toe amputation site in standard fashion with PDS suture was closed with no tension and had good perfusion. This was then appropriately dressed with Xeroform 4 x 4's ABD Curlex and an David wrap. Patient was then awakened from anesthesia and taken to PACU in stable condition. Disposition: Patient taken to PACU in stable condition recovering well. Pain controlled. Will return to the floor postoperatively. We will plan to send him home on p.o. antibiotics postoperatively as we did disarticulate and amputate all aspects of the infection we will keep him on a prophylaxis antibiotics for the next 2 weeks while his incision heals. Patient should be nonweightbearing. Receive appropriate discharge instructions pain medication DVT prophylaxis and dressing instructions. Follow-up in the office in 2 weeks. All questions answered
--- NOTE | 2022-11-13 12:29 | PM.OP2 ---
Brief Operative Note Date of procedure: 11/13/22 Pre-op diagnosis: Osteomyelitis of left great toe Post-op diagnosis: same Procedure Done: Left great toe amputation at MTP joint. Surgeon: Rocky Schmitz Estimated blood loss (mL): 10 Complications: none Post-op Plan: Leave dressing dry and intact Nonweightbearing on operative lower extremity Use crutches to help with ambulation. Elevation and ice as needed for pain and swelling Pain control Take antibiotics per medicine Follow-up in the orthopedic office in 2 weeks Contact the office for any questions or concerns Condition: stable Disposition: PACU Coding Level of Care Code Acute Code for Gina Caballero
--- NOTE | 2022-11-13 12:37 | PM.PACU ---
PACU note Narrative: Patient is a 72-year-old male just underwent a left great toe amputation. Pt transferred to PACU in stable condition. Dressing is dry. pt is awake and alert. pt can wiggle toes and plantarflex and dorsiflex foot. pt able to perform straight leg raise, Femoral nerve intact. Distal pulses are palpable toes are warm and well-perfused. Cap refill is normal and under 2 seconds. Sensation to foot is intact. Pain is controlled. Exam: awake Disposition: back to floor
[2022-11-13] MEDS: ceFAZolin 2,000 MG in sodium chloride 0.9% (plus) 50 ML 100 MG IV ×2 (12:48→20:28)
--- NOTE | 2022-11-13 13:00 | ANE.PACU2 ---
Inpatient post-anesthesia follow up: Airway intact: Yes Vital signs: Temperature 98.0 F Pulse Rate 86 Respiratory Rate 18 Blood Pressure 142/69 Pulse Oximetry 96 Oxygen Delivery Me thod Room Air Oxygen Flow Rate 0 Fraction of Inspir ed Oxygen Hydration adequate: Yes Nausea and vomiting: No Pain level: 1 Mental status: Baseline
[2022-11-13] MEDS: oxyCODONE 5 mg IR Tab/Cap PO (16:16)
--- NOTE | 2022-11-13 16:36 | PM.PN ---
Subjective Subjective: Patient evaluated in the postanesthesia area. He status post amputation this morning. He reports pain is currently well controlled. Denies fevers, chills, nausea or emesis. Medications: Reviewed: Yes Vitals/I&O/Wt Last Vital Signs Temp 97.4 F L 11/13/22 12:55 Pulse 55 L 11/13/22 13:08 Resp 18 11/13/22 16:16 BP 183/69 11/13/22 13:08 Pulse Ox 95 11/13/22 16:16 O2 Del Method Room Air 11/13/22 12:55 O2 Flow Rate 0 11/13/22 12:55 11/13/22 11/13/22 11/13/22 06:59 14:59 22:59 Intake Total 597 / 597 Output Total Balance 592 / 592 Physical Exam Narrative: General: Patient is awake. Alert. Lying on stretcher Neck: No JVD. Cardiovascular: RRR. No gallops. No murmurs. Lungs: Clear to auscultation, no use of accessory muscles, no crackles or wheezes. Skin: No jaundice. No rashes. Abdomen: Normal bowel sounds, abdomen soft and nontender. Extremities: No cyanosis or clubbing. Left foot is wrapped surgical bandages. Neurological: Moves all 4 extremities. No myoclonus. Data 11/13/22 05:24 11/13/22 05:10 Micro: Microbiology 11/12/22 08:06 Wound Culture - Preliminary Toe - Left Big A&P Assessment and plan (1) Puncture wound of foot: Puncture wound complicated by severe cellulitis, septic arthritis, and acute osteomyelitis Orthopedics following, appreciate recommendations Status post amputation at the left great toe MTP joint on 11/13 Follow-up cultures/path Start vancomycin with tentative plans to rotate to oral antibiotics at discharge Wound care Analgesics as needed (2) Diabetes: Diet controlled with A1c of 5.9 (3) Hypertension: Blood pressure is persistently elevated Starting antihypertensive (4) Neuropathy: Continue home tramadol Plan DVT prophylaxis: Lovenox CODE STATUS: Full code Attestations Medical Necessity Statement*: Patient requires ongoing hospitalization for further imaging for initiation of IV antibiotics, wound care, and supportive care. Coding Level of Care Code Acute Code for [facility] Diagnoses Puncture wound of foot S91.339A Diabetes E11.9 Hypertension I10 Neuropathy G62.9
[2022-11-13] MEDS: docusate sodium 100 mg Capsule PO (18:08)
[2022-11-13] MEDS: iron polysaccharide complex 150 mg Capsule PO (18:08)
[2022-11-13] MEDS: calcium carb-vit d 600mg/400unit 1 Tablet 1 EACH PO (18:08)
[2022-11-13] MEDS: vancomycin 1,250 MG/250 ML PIGGYBACK 200 MG IV (18:08)
[2022-11-14] VITALS (8 sets, daily range): BP systolic 142–162; BP diastolic 69–91; PULSE 72–92; RESP 16–18; TEMP 36.7–37.2; O2SAT 18–98
[2022-11-14] MEDS: enoxaparin 30 mg/0.3 mL Syringe SUBCUT (00:23)
[2022-11-14] MEDS: oxyCODONE 5 mg IR Tab/Cap PO ×4 (00:25→14:27)
[2022-11-14] MEDS: ceFAZolin 2,000 MG in sodium chloride 0.9% (plus) 50 ML 100 MG IV ×2 (04:31→11:14)
[2022-11-14] MEDS: acetaminophen 325 mg Tablet 650 MG PO ×2 (05:12→11:15)
[2022-11-14] MEDS: TRAMadol 50 mg Tablet PO ×2 (05:12→11:15)
[2022-11-14] MEDS: vancomycin 1,250 MG/250 ML PIGGYBACK 200 MG IV (05:13)
[2022-11-14] MEDS: iron polysaccharide complex 150 mg Capsule PO (07:27)
[2022-11-14] MEDS: calcium carb-vit d 600mg/400unit 1 Tablet 1 EACH PO (07:27)
[2022-11-14] MEDS: multivitamin therapeutic Tablet 1 TAB PO (07:27)
[2022-11-14] MEDS: docusate sodium 100 mg Capsule PO (07:27)
--- NOTE | 2022-11-14 08:01 | PC.SOCIAL ---
IMM Update pg 2 of IMM not updated as patient is currently in observation status.
[2022-11-14] MEDS: amlodipine 5 mg Tablet PO (09:58)
[2022-11-14] MEDS: piperacillin-tazobactam 3.375 GM in sodium chloride 0.9% (plus) 50 ML IV (10:07)
--- NOTE | 2022-11-14 10:24 | P.PN_ITS ---
Patient seen and examined postoperative day 1 overall he is doing well he is ready for discharge home. He is had amputation above the level of his infection at the MTP joint. At this point in time he stable for discharge from an orthopedic standpoint recommend his dressing stay on and in place until follow- up. Should be nonweightbearing to the operative extremity to prevent any stress risers on the incision site he understands and verbalizes this. He is stable for discharge from orthopedic standpoint orthopedic surgery team will sign off patient at this time and follow peripherally. He will follow-up with us in the office in 2 weeks. I have reviewed PAs assessment and plan and we have had discussion with patient and agree with current plan. All questions answered at this time. I did discuss case with Dr. Anand who is awaiting an MRSA screening for possible empiric additional p.o. antibiotic coverage. Given his clean margins I would not recommend any IV antibiotics at this time and just oral antibiotics for roughly 2 weeks upon closure of his incision site. Patient understands agrees with current plan. All questions answered. Orthopedic surgery team will sign off and follow peripherally. We will follow-up in the office in 2 weeks. Subjective Subjective: Patient is 1 day postop left great toe amputation. He denies any complaints. he states, he is feeling fine and ready to go home. No acute issues overnight. Denies any fevers chills, nausea or vomiting. Vitals/I&O/Wt Last Vital Signs Temp 98.3 F 11/14/22 08:00 Pulse 72 11/14/22 08:00 Resp 18 11/14/22 09:58 BP 162/80 11/14/22 08:00 Pulse Ox 95 11/14/22 09:58 O2 Del Method Room Air 11/13/22 12:55 O2 Flow Rate 0 11/14/22 07:34 11/13/22 11/14/22 11/14/22 22:59 06:59 14:59 Intake Total 830 / 1427 50 / 1477 610 / 610 Balance 830 / 1422 50 / 1472 610 / 610 Physical Exam Const: COMMON NORMALS: patient oriented x3 and alert GENERAL APPEARANCE: cooperative Resp: COMMON NORMALS: normal respiratory effort EFFORT & INSPECTION: Yes able to speak in complete sentences and No respiratory distress Extremity: NARRATIVE EXTREMITY EXAM: Left foot?dressing over foot is dry and intact. No erythema or warmth noted. No red streaking up the leg. Neuro: COMMON NORMALS: patient oriented x3 SENSORIUM/ORIENTATION: Yes alert Data 11/13/22 05:24 11/13/22 05:10 Micro: Microbiology 11/12/22 08:06 Wound Culture - Preliminary Toe - Left Big A&P Assessment and plan (1) Puncture wound of foot: Puncture wound associated with severe cellulitis, suspected osteomyelitis -Labs reviewed -Bone cultures still pending -Home with PO antibiotic-Cephalexin -Nonweightbearing on left foot -Pain control -PO 325 mg aspirin daily for blood clot prevention -Crutches for amubulation -Keep dressing on and dry until follow-up appointment in 2 weeks with Ortho. From an orthopedic standpoint patient is cleared for discharge home and can follow-up in orthopedic clinic in 2 weeks. Attestations Medical Necessity Statement*: Ongoing care for osteomyelitis of left great toe Coding Level of Care Code Acute Code for [facility] Diagnoses Puncture wound of foot S91.339A
[2022-11-14 11:36] LABS: Cholesterol 121 mg/dL (0-200); HDL Cholesterol 22 mg/dL (60-100); LDL Cholesterol Calculated 64 mg/dL (50-129); Thyroid Stimulating Hormone 2.91 uIU/mL (0.27-4.20); Triglycerides 174 mg/dL (0-150); VLDL Cholestrol Calculation 35 mg/dL (0-30)
[2022-11-14 11:43] LABS: Iron 13 ug/dL (59-158); Percent Saturation 7.7 % (20-50); Total Iron Binding Capacity 167 mcg/dl; Unsaturated Iron Binding 154 ug/dL (112-347); Vitamin B12 651 pg/mL (232-1245)
--- NOTE | 2022-11-14 13:40 | P.DS_ITS ---
Discharge Providers Date of Admission: 11/11/22 18:02 Date of Discharge: November 14, 2022 Attending Provider at Admission: Danny Casarez MD Attending Provider at Discharge: Tj Lowry MD Consults: Orthopedics: Dr. Schmitz Primary Care Provider: Jane Dhaliwal Diagnoses at Discharge Discharge Diagnosis (1) Puncture wound of foot: Status: Acute Reason for Visit Reason for Visit: Left foot injury Brief History: History as per HPI: Chet Harman is a 72 year old male with a past medical history significant for diet controlled type 2 diabetes mellitus who presents with worsening infection of left foot.? Patient reports he injured his left toe around 3 weeks ago.? He is slightly tangential on the history but it seems that he stepped on something while walking on a gravel road.? They have been cleaning it and initially got better but then worsened.? Reports for the last several days the pain has gotten severe, 10 out of 10.? Reports difficulty ambulating. Hospital Course Hospital Course Patient was admitted to the hospital further evaluation and management of cellulitis with suspected osteomyelitis. Orthopedics was consulted and underwent MRI swelling for acute osteomyelitis of hallux phalanges. He underwent left great toe amputation at MTP joint. His hospitalization was unremarkable. Blood cultures remain negative. Wound culture from the OR so far negative. MRSA is negative. He has been discharged in hemodynamically stable condition on oral antibiotics for next 10 days after being seen by physical therapy with advised to follow-up with his primary care provider and orthopedic team as directed. During hospitalization he was found to have elevated blood pressures for which she was started on oral amlodipine 5 mg daily. He is to check his blood pressure daily at home and maintain a blood pressure diary and follow-up with a primary care provider for further adjustment of antihypertensives. Discharge of this facility with the patient and spouse at bedside and they verbalized understanding. Physical Exam Narrative: General: Patient is awake. Alert. Lying in bed Neck: No JVD. Cardiovascular: RRR. No gallops. No murmurs. Lungs: Clear to auscultation, no use of accessory muscles, no crackles or whe ezes. Skin: No jaundice. No rashes. Abdomen: Normal bowel sounds, abdomen soft and nontender. Extremities: No cyanosis or clubbing. Left foot is wrapped surgical bandages. Neurological: Moves all 4 extremities. No myoclonus. Discharge Data Studies Completed and Pending Completed Studies During Hospitalization Category Date Time Status CT foot LT wo con* [id number] Stat Cat Scan 11/11/22 14:54 Completed MR foot LT wo/w con [id number] Routine MRI 11/12/22 00:14 Completed Pending at discharge Category Date Time Status Complete Blood Count w/Auto AM LABS Lab 11/15/22 04:00 Ordered Comprehensive Metabolic Panel AM LABS Lab 11/15/22 04:00 Ordered Vancomycin Trough Timed Lab 11/15/22 05:00 Ordered Wound Culture Routine Lab 11/12/22 08:06 Results Pathology: Surgical [PTH] Routine Pth 11/13/22 12:56 Ordered Radiology Impressions Foot MRI 11/12/22 00:14 IMPRESSION: 1. Acute osteomyelitis of the hallux phalanges with findings concerning for septic arthritis of the interphalangeal joint, as described above. 2. Additional findings, as above. Microbiology 11/14/22 10:06 Nose MRSA Culture - Final 11/12/22 08:06 Toe - Left Big Wound Culture - Preliminary Laboratory Results WBC 8.25 10^3/uL (3.29-11.43) 11/13/22 05:24 RBC 3.71 10^6/uL (3.85-5.65) L 11/13/22 05:24 Hgb 11.40 g/dL (11.27-16.99) 11/13/22 05:24 Hct 34.5 % (37-53) L 11/13/22 05:24 MCV 93.0 fl (82-101) 11/13/22 05:24 MCH 30.7 pg (27-33) 11/13/22 05:24 MCHC 33.0 g/dL (30-55) 11/13/22 05:24 RDW 11.9 % (12.1-15.1) L 11/13/22 05:24 Plt Count 341 10^3/cmm (157-399) 11/13/22 05:24 MPV 8.8 fL (7.4-10.4) 11/13/22 05:24 Neut % (Auto) 50.9 % 11/13/22 05:24 Lymph % (Auto) 38.2 % 11/13/22 05:24 Foster % (Auto) 7.9 % 11/13/22 05:24 Eos % (Auto) 2.2 % 11/13/22 05:24 Baso % (Auto) 0.6 % 11/13/22 05:24 Neut # (Auto) 4.20 10^3/uL (1.8-7.7) 11/13/22 05:24 Lymph # (Auto) 3.2 10^3/uL (0.8-4.8) 11/13/22 05:24 Foster # (Auto) 0.7 10^3/uL (0.2-0.9) 11/13/22 05:24 Eos # (Auto) 0.2 10^3/uL (0.0-0.8) 11/13/22 05:24 Baso # (Auto) 0.1 10^3/uL (0.0-0.1) 11/13/22 05:24 Nucleated RBC % (auto) 0 % 11/13/22 05:24 Nucleated RBCs # 0.0 /100WBC 11/13/22 05:24 ESR 16 mm/hr (0-10) H 11/11/22 15:13 Sodium 142 mmol/L (136-145) 11/13/22 05:10 Potassium 3.4 mmol/L (3.5-5.1) L 11/13/22 05:10 Chloride 109 mmol/L (98-107) H 11/13/22 05:10 Carbon Dioxide 24 mmol/L (22-29) 11/13/22 05:10 Anion Gap 12.4 (5-19) 11/13/22 05:10 BUN 10 mg/dL (8-23) 11/13/22 05:10 Creatinine 0.8 mg/dL (0.7-1.2) 11/13/22 05:10 GFR Calculation Not Reportable 11/13/22 05:10 Glucose 95 mg/dL (65-115) 11/13/22 05:10 Estimat Average Glucose 123 11/12/22 04:20 Hemoglobin A1c 5.9 % (4.0-6.0) 11/12/22 04:20 Calculated Osmolality 297 mOsm/kg (285-295) H 11/11/22 15:13 Calcium 8.9 mg/dL (8.5-10.5) 11/13/22 05:10 Phosphorus 3.3 mg/dL (2.5-4.5) 11/13/22 05:10 Iron 13 ug/dL (59-158) L 11/14/22 10:16 TIBC 167 mcg/dl 11/14/22 10:16 % Saturation 7.7 % (20-50) L 11/14/22 10:16 Unsat Iron Binding 154 ug/dL (112-347) 11/14/22 10:16 Total Bilirubin 0.2 mg/dL (0.15-1.2) 11/11/22 15:13 AST 12 U/L (0-40) 11/11/22 15:13 ALT 9 U/L (0-41) 11/11/22 15:13 Alkaline Phosphatase 89 U/L (40-130) 11/11/22 15:13 C-Reactive Protein 9.8 mg/L (0.0-4.9) H 11/11/22 15:13 Total Protein 8.5 g/dL (6.6-8.7) 11/11/22 15:13 Albumin 3.6 g/dL (3.5-5.2) 11/13/22 05:10 Globulin 3.8 g/dL (1.3-4.6) 11/11/22 15:13 Triglycerides 174 mg/dL (0-150) H 11/14/22 10:16 Cholesterol 121 mg/dL (0-200) 11/14/22 10:16 LDL Cholesterol, Calc 64 mg/dL (50-129) 11/14/22 10:16 Total VLDL Cholesterol 35 mg/dL (0-30) H 11/14/22 10:16 HDL Cholesterol 22 mg/dL (60-100) L 11/14/22 10:16 Cholesterol/HDL Ratio 5.50 mg/dL (1.0-5.00) H 11/14/22 10:16 Vitamin B12 651 pg/mL (232-1245) 11/14/22 10:16 TSH 2.91 uIU/mL (0.27-4.20) 11/14/22 10:16 Vitals Last Vital Signs Temp 98.0 F 11/14/22 11:40 Pulse 86 11/14/22 11:40 Resp 18 11/14/22 11:40 BP 142/69 11/14/22 11:40 Pulse Ox 96 11/14/22 11:40 O2 Del Method Room Air 11/13/22 12:55 O2 Flow Rate 0 11/14/22 07:34 Discharge Plan Discharge Patient Disposition: Home Condition: Stable Prescriptions: New hydrocodone-acetaminophen 5-325 mg tablet 1 tab PO Q6H PRN (Reason: pain) 5 Days Qty: 20 0RF ondansetron 4 mg tablet,disintegrating 4 mg PO Q8H PRN (Reason: nausea and vomiting) 3 Days Qty: 9 0RF aspirin 325 mg capsule 325 mg PO DAILY 21 Days Qty: 21 0RF amlodipine 5 mg Tablet 5 mg PO DAILY Qty: 30 0RF Augmentin 500-125 mg tablet 1 tab PO Q12H Qty: 20 0RF levofloxacin 500 mg tablet 500 mg PO Q24H 10 Days Qty: 10 0RF Continued acetaminophen 500 mg Tablet 1,000 mg PO QID PRN (Reason: Pain) Benadryl 25 mg Capsule 75 mg PO BID PRN (Reason: Itching) Vitamin D3 25 mcg (1,000 unit) Tablet 25 mcg PO DAILY tramadol 50 mg tablet 50 mg PO QID PRN (Reason: Pain) 14 Days Qty: 56 0RF Discharge Orders: Discharge Order (Routine); Ordered 11/14/22 Ordered By: Tj Lowry Referrals: Rocky Schmitz DO [Physician] - 2 weeks (We have notified your physician's clinic of the need for a follow-up appointment to be scheduled. If you have not heard from them within the next 2 business days, please call them directly. You may also reach out to our territory manager general sales at [phone] and she can assist you.) Jane Dhaliwal [Primary Care Provider] - 3 weeks (Please call Monday to schedule a follow up appointment. We have notified your physician's clinic of the need for a follow-up appointment to be scheduled. If you have not heard from them within the next 2 business days, please call them directly. You may also reach out to our territory manager general sales at [phone] and she can assist you.) Discharge Diet: Advance as tolerated Discharge Activity: Limit activity as instructed and Use walker/crutches as instructed Patient Instructions: Hydrocodone/Acetaminophen (By mouth), Aspirin (By mouth), Amoxicillin/Clavulanate Potassium (By mouth), Amlodipine (By mouth), Ondansetron (By mouth), Levofloxacin (By mouth), Osteomyelitis (DC), Opioid Safety Activity Restrictions/Additional Instructions: Orthopedic discharge instructions: Leave dressing on dry and intact until followup appointment Nonweightbearing on operative lower extremity Do not submerge foot in any water. Use crutches to help with ambulation. Elevation and ice as needed for pain and swelling Take aspirin as prescribed for blood clot prevention Take pain medication as prescribed Take antinausea medication as needed Take antibiotic as prescribed May supplement with [id number]-abxolhu anti-inflammatories (make sure not to take more than 3000 mg of Tylenol in 1 day as your pain medication does have Tylenol in it) Follow-up in the orthopedic office in 2 weeks Contact the office for any questions or concerns Continue taking your antibiotics as prescribed. You will be on 2 different antibiotics. Take Augmentin twice daily for next 10 days along with Levaquin once daily for 10 days. Follow-up with orthopedics as directed. You will be on amlodipine which is the blood pressure medication going forward daily. Take 5 mg daily. Check your blood pressure daily and maintain a blood pressure diary and follow-up with a primary care provider within the next 2 weeks for further adjustment of medications as needed. Discharge Attestations Time Spent in Discharge Care*: greater than 30 min Specific Discharge Activities: educating patient, educating and/or supporting family/caregiver, discussing with pcp/other providers, discussing with correctional casework specialist/social workers/dc planners, documenting/other paperwork and evaluating patient/reviewing data Status at Discharge: Cognitive status at discharge: cognitively intact , Behavioral status at discharge: cooperative , Functional status at discharge: uses cane/walker , Overall status at discharge: patient is progressing back to baseline Quality Metrics Clinical Quality Measures [ No reported AMI, CVA or VTE this stay] Coding Level of Care Code 84428 Total time (in minutes) for Discharge: 60 Diagnoses Puncture wound of foot S91.339A
== END 2022-11-14 15:35 | disposition home health service (06) ==
LOC: ER 17:08 → MEDSURG 21:27
PROVIDERS: Internal Medicine; Student in an Organized Health Care Education/Training Program; Admitting Provider Internal Medicine; Emergency Provider Nurse Practitioner; PCP Internal Medicine; Visit Provider Student in an Organized Health Care Education/Training Program
PROC: (CPT 28820; principal; 2022-11-13 11:00)
PROC: (CPT 28820; 2022-11-13 11:00)
DX: S91.339A Puncture wound without foreign body, unspecified foot, initial encounter (principal); W22.8XXA Striking against or struck by other objects, initial encounter; M86.8X7 Other osteomyelitis, ankle and foot; E11.621 Type 2 diabetes mellitus with foot ulcer; I10 Essential (primary) hypertension; E11.40 Type 2 diabetes mellitus with diabetic neuropathy, unspecified
CPT/HCPCS: 28820; 36415; 73700; 73720; 80053; 80061; 80069; 82607; 83036; 83540; 83550; 84443; 85025; 85651; 86140; 87070; 87641; 88305; 88311; 96361; 96372; 96374; 96375; 97165; 99285; A9577; G0378; J0131; J0690; J1650; J1885; J2270; J2543; J2704; J2795; J3010; J3370; J7030; J7040

== ENCOUNTER → 2022-11-25 07:37 | Outpatient (BNVA) | payer MEDICARE, SELFPAY | PROVIDERS: PCP Internal Medicine; Visit Provider Student in an Organized Health Care Education/Training Program | DX: T81.30XA Disruption of wound, unspecified, initial encounter; M86.172 Other acute osteomyelitis, left ankle and foot; Y83.8 Other surgical procedures as the cause of abnormal reaction of the patient, or of later complication, without mention of misadventure at the time of the procedure | CPT/HCPCS: 99213; L4361 ==

== ENCOUNTER → 2022-12-08 14:31 | Outpatient (BNVA) | payer MEDICARE, SELFPAY | PROVIDERS: PCP Internal Medicine; Visit Provider Student in an Organized Health Care Education/Training Program | DX: T81.31XA Disruption of external operation (surgical) wound, not elsewhere classified, initial encounter; M86.172 Other acute osteomyelitis, left ankle and foot; Y83.8 Other surgical procedures as the cause of abnormal reaction of the patient, or of later complication, without mention of misadventure at the time of the procedure | CPT/HCPCS: 99213 ==

== ENCOUNTER 2022-12-27 13:08 | Emergency (ER) | payer MEDICARE, SELFPAY ==
[2022-12-27 13:14] VITALS: BMI 26.4
--- NOTE | 2022-12-27 13:18 | ECG_ITS ---
[facility] Test Date: 2022-12-27 Pat Name: Chet Harman Department: Room: Gender: Male [employer]less Grinder: : 1950 Requested By: Alber Robles Order Number: [id number] Saundra MD: Amanda Mckinley M.D. Measurements Intervals [place] Rate: 73 P: 55 KS: 194 QRS: 82 QRSD: 98 T: 60 QT: 403 QTc: 445 Interpretive Statements SINUS RHYTHM INCOMPLETE RIGHT BUNDLE BRANCH BLOCK [90+ ms QRS DURATION, TERMINAL R IN V1/V2, 40+ ms S IN I/aVL/V4/V5/V6] Compared to ECG 08/22/2022 22:32:52 Sinus tachycardia no longer present Electronically Signed On 12-27-2022 15:23:49 CDT by Amanda Mckinley M.D. [email or web address]
--- NOTE | 2022-12-27 13:18 | CT_ITS ---
WS: [id number] CT HEAD TECHNIQUE: Noncontrast CT of the head obtained from the skullbase to the vertex. CLINICAL INFORMATION: AMS COMPARISON: CT head 2013 DLP: 1221.[address] scans at [facility] use at least one of these dose optimization techniques: automated e xposure control; mA and/or kV adjustment per patient size (includes targeted exams where dose is matc hed to clinical indication); or iterative reconstruction. FINDINGS: No evidence of intracranial hemorrhage or mass effect. Ventricular system and basal cisterns are davila nt. Mild small vessel changes with moderate parenchymal volume loss. Chronic lacunar infarct in the L EFT centrum semiovale intracranial vascular calcification. Tiny chronic lacunar infarct RIGHT basal g anglia. No extra-axial fluid collections. No evidence of mass or mass effect. Paranasal sinuses and mastoid air cells are well aerated. .Normal visualized soft tissues. IMPRESSION: 1. No evidence of intracranial hemorrhage or mass effect. 2. Mild small vessel changes with moderate parenchymal volume loss. 3. Chronic lacunar infarct in the LEFT centrum semiovale 4. Intracranial vascular calcification. 5. Tiny chronic lacunar infarct RIGHT basal ganglia 6. No acute intracranial findings.
[2022-12-27 13:21] VITALS: BP 172/109; PULSE 80; O2SAT 97
[2022-12-27 13:22] LABS: Glucose Point of Care 150 mg/dL (70-110)
[2022-12-27 13:42] LABS: Basophils % 0.5 %; Eosinophils # 0.2 10^3/uL (0.0-0.8); Eosinophils % 1.8 %; Hematocrit 40.3 % (37-53); Lymphocytes # 2.4 10^3/uL (0.8-4.8); Lymphocytes % 27.2 %; Mean Corpuscular HGB Conc 32.3 g/dL (30-55); Mean Corpuscular Hemoglobin 29.9 pg (27-33); Mean Corpuscular Volume 92.6 fl (82-101); Mean Platelet Volume 9.3 fL (7.4-10.4); Monocytes # 0.6 10^3/uL (0.2-0.9); Monocytes % 6.2 %; Neutrophils # 5.65 10^3/uL (1.8-7.7); Neutrophils % 63.8 %; Nucleated Red Blood Cells % 0 %; Platelet Count 265 10^3/cmm (157-399); Red Blood Count 4.35 10^6/uL (3.85-5.65); Red Cell Distribution Width 12.7 % (12.1-15.1); White Blood Count 8.85 10^3/uL (3.29-11.43)
[2022-12-27 13:56] LABS: Alanine Aminotransferase 15 U/L (0-41); Albumin Level 4.5 g/dL (3.5-5.2); Alkaline Phosphatase 82 U/L (40-130); Anion Gap 14.7 (5-19); Aspartate Amino Transferase 15 U/L (0-40); Blood Urea Nitrogen 13 mg/dL (8-23); Calcium 9.3 mg/dL (8.5-10.5); Carbon Dioxide 26 mmol/L (22-29); Chloride 100 mmol/L (98-107); Creatinine Clr Calc Pharmacy 84.8159; Glucose 163 mg/dL (65-115); Osmolality Calculated 288 mOsm/kg (285-295); Potassium 3.7 mmol/L (3.5-5.1); Sodium 137 mmol/L (136-145); Total Bilirubin 0.6 mg/dL (0.15-1.2); Total Protein 7.5 g/dL (6.6-8.7)
--- NOTE | 2022-12-27 14:05 | ED_ITS ---
HPI - Neuro Symptoms/Deficit General: Chief Complaint: Neuro Symptoms/Deficit Stated Complaint: stroke like symptoms Time Seen by Provider: 12/27/22 13:12 History of Present Illness: 72-year-old male presents to the emergency department with complaints that yesterday at approximately 1600 he felt like he was having some numbness and intermittent tingling to his left hand and arm. He states that he felt that he was having trouble grasping and holding onto objects. He states that the symptoms have since resolved but felt he should come to the emergency department to be evaluated in case he had a stroke. Patient does not appear to be in any acute distress and his initial NIH stroke scale was 0. He has no neurological deficits upon presentation to the emergency department. He denies headache, neck pain, dizziness or lightheaded feeling. He denies shortness of breath or chest pain. Review of Systems General: Reports: 10 or more systems reviewed and unremarkable except in HPI and below Neuro: Reports: numbness in extremities, weakness in extremities and sensory changes [facility] ED PFSH: Medical History Hypertension Neuropathy Surgical History History of incision and drainage Family History Father Alcohol use disorder Denies family history of Diabetes Social History Smoking and tobacco/nicotine status: never used tobacco/nicotine Alcohol intake: never Substance/Drug Use: former Physical Exam Narrative: EXAM NARRATIVE: Constitutional: the patient appears well nourished and with normal developement. Vital signs reviewed as documented. HENMT: Normocephalic, atraumatic. Extermal ears with normal appearance without drainage. Nose without drainage, normal appearance. Mucus membranes moist. Neck is supple, No jugular venous distension, trachea is midline, no appreciable carotid bruits. No lymphadenopathy. No meningeal signs. Flexion, extension and lateral rotation is without pain. Eyes: Pupils are equal, round, reactive to light and accomidation. No scleral icterus. Extra-ocular movement are intact. Thorax is symmetrical and with equal rise and fall with respirations. Resp: Lungs are clear to auscultation. No wheezes, rales, crackles or ronchi at pesent. Cardio: Regular rate and rhythm. Positive S1, S2. No appreciable murmurs, rubs or gallops. GI: Abdominal exam reveals normal bowel sounds to all quadrants. No organomegaly. No obvious palpable masses noted. No hepatomegaly appreciated. Soft, nontender to palpation. Extremity: Extremities are non-edematous and both femoral and pedal pulses are 2+ and equal bilaterally. Moves all extremities well, sensation in all extremities. Neuro: Alert and oriented x4, person, place, time and situation. Cranial nerves II through XII are grossly intact, there is no focal neurological deficits that I can appreciate at present. Motor strength in the upper and lower extremities are equal and bilateral 5/5. Psych: Cooperative, calm, normal thought process, appropriate judgment. Skin: No lesions, rashes. No gross abnormalities noted. Back: Symmetrical, no obvious deformity, No CVA tenderness Course Vital Signs: Vital signs: Vital Signs Pulse Rate 75 12/27/22 16:30 Blood Pressure 157/97 12/27/22 16:30 Pulse Oximetry 97 12/27/22 16:30 Oxygen Delivery Me thod Room Air 12/27/22 14:57 MDM - Neuro Symptoms/Deficit Medical Decision Making Physical exam completed and documented, given the patient's presenting complaints I will obtain a CT head without contrast as well as a CTA head and neck to evaluate the patient's potential neurological injury. Patient at pre sent and upon presentation does not have any neurological symptoms I suspect this is most likely a transischemic event that has now resolved. I will also obtain laboratory evaluation to include a CBC, CMP, coagulation studies. And twelve-lead EKG. Medical Records I reviewed the patient's medical records. Lab Data I reviewed the patient's lab results. 12/27/22 13:20 12/27/22 13:20 Laboratory Results WBC 8.85 10^3/uL (3.29-11.43) 12/27/22 13:20 RBC 4.35 10^6/uL (3.85-5.65) 12/27/22 13:20 Hgb 13.00 g/dL (11.27-16.99) 12/27/22 13:20 Hct 40.3 % (37-53) 12/27/22 13:20 MCV 92.6 fl (82-101) 12/27/22 13:20 MCH 29.9 pg (27-33) 12/27/22 13:20 MCHC 32.3 g/dL (30-55) 12/27/22 13:20 RDW 12.7 % (12.1-15.1) 12/27/22 13:20 Plt Count 265 10^3/cmm (157-399) 12/27/22 13:20 MPV 9.3 fL (7.4-10.4) 12/27/22 13:20 Neut % (Auto) 63.8 % 12/27/22 13:20 Lymph % (Auto) 27.2 % 12/27/22 13:20 [place] % (Auto) 6.2 % 12/27/22 13:20 Eos % (Auto) 1.8 % 12/27/22 13:20 Baso % (Auto) 0.5 % 12/27/22 13:20 Neut # (Auto) 5.65 10^3/uL (1.8-7.7) 12/27/22 13:20 Lymph # (Auto) 2.4 10^3/uL (0.8-4.8) 12/27/22 13:20 [place] # (Auto) 0.6 10^3/uL (0.2-0.9) 12/27/22 13:20 Eos # (Auto) 0.2 10^3/uL (0.0-0.8) 12/27/22 13:20 Baso # (Auto) 0.0 10^3/uL (0.0-0.1) 12/27/22 13:20 Nucleated RBC % (auto) 0 % 12/27/22 13:20 Nucleated RBCs # 0.0 /100WBC 12/27/22 13:20 Sodium 137 mmol/L (136-145) 12/27/22 13:20 Potassium 3.7 mmol/L (3.5-5.1) 12/27/22 13:20 Chloride 100 mmol/L (98-107) 12/27/22 13:20 Carbon Dioxide 26 mmol/L (22-29) 12/27/22 13:20 Anion Gap 14.7 (5-19) 12/27/22 13:20 BUN 13 mg/dL (8-23) 12/27/22 13:20 Creatinine 0.9 mg/dL (0.7-1.2) 12/27/22 13:20 GFR Calculation Not Reportable 12/27/22 13:20 Glucose 163 mg/dL (65-115) H 12/27/22 13:20 POC Glucose 150 mg/dL (70-110) H 12/27/22 13:18 Calculated Osmolality 288 mOsm/kg (285-295) 12/27/22 13:20 Calcium 9.3 mg/dL (8.5-10.5) 12/27/22 13:20 Total Bilirubin 0.6 mg/dL (0.15-1.2) 12/27/22 13:20 AST 15 U/L (0-40) 12/27/22 13:20 ALT 15 U/L (0-41) 12/27/22 13:20 Alkaline Phosphatase 82 U/L (40-130) 12/27/22 13:20 Total Protein 7.5 g/dL (6.6-8.7) 12/27/22 13:20 Albumin 4.5 g/dL (3.5-5.2) 12/27/22 13:20 Globulin 3.0 g/dL (1.3-4.6) 12/27/22 13:20 All radiology interpretation(s) finalized by discharge ED provider radiology interpretation(s): CT head COMPARISON: CT head 2013 DLP: 1221.[address] scans at [facility] use at least one of these dose optimization techniques: automated exposure control; mA and/or kV adjustment per patient size (includes targeted exams where dose is matched to clinical indication); or iterative reconstruction. FINDINGS: No evidence of intracranial hemorrhage or mass effect. Ventricular system and basal cisterns are patent. Mild small vessel changes with moderate parenchymal volume loss. Chronic lacunar infarct in the LEFT centrum semiovale intracranial vascular calcification. Tiny chronic lacunar infarct RIGHT basal ganglia. No extra-axial fluid collections. No evidence of mass or mass effect. Paranasal sinuses and mastoid air cells are well aerated. .Normal visualized soft tissues. IMPRESSION: 1.? No evidence of intracranial hemorrhage or mass effect. 2.? Mild small vessel changes with moderate parenchymal volume loss. 3.? Chronic lacunar infarct in the LEFT centrum semiovale 4.? Intracranial vascular calcification. 5.? Tiny chronic lacunar infarct RIGHT basal ganglia 6.? No acute intracranial findings. COMPARISON: None. DLP: 472.[address] scans at [facility] use at least one of these dose optimization techniques: automated exposure control; mA and/or kV adjustment per patient size (includes targeted exams where dose is matched to clinical indication); or iterative reconstruction. FINDINGS: Chronic emphysematous changes in the lung apices. Aortic arch calcification. RIGHT: RIGHT common carotid artery is patent. No significant RIGHT ICA stenosis. RIGHT ICA is patent to the skull base. LEFT: LEFT common carotid artery is patent. No significant LEFT ICA stenosis. LEFT ICA is patent to the skull base. INTRACRANIAL CTA: Mild intracranial atheromatous disease. ? Both vertebral arteries are patent. Proximal basilar artery is patent. Patent RIGHT posterior communicating artery. Normal vascularity to the WAIST PRESSER territory bilaterally. Mild atheromatous disease both posterior cerebral arteries. Both ICAs are patent at the skull base. Cavernous carotid calcification. Normal vascularity to the JOSE DE JESUS and MCA territories bilaterally. Patent anterior communicating artery. Small LEFT A1 segment. ? IMPRESSION: 1.? No significant ICA stenosis bilaterally. Both ICAs are patent to the skull base. 2.? Both vertebral arteries are patent. 3.? No intracranial proximal flow limiting stenosis. 4.? Mild intracranial atheromatous disease. Critical Care Time Critical Care Time: Critical Care Time: Yes Total Critical Care Time: 75 Attestation: This case had a high probability of a clinically significant, sudden, or life t hreatening deterioration of this patient's condition which required my full and direct attention, intervention and personal management. Discharge Plan Discharge Patient Disposition: Home Clinical Impression: TIA (transient ischemic attack) Condition: Stable Prescriptions: New Norvasc 5 mg tablet 5 mg PO DAILY Qty: 90 0RF No Action (DME) CAM BOOT See Rx Instructions .Route .MEDSUPPLY Qty: 1 0RF Rx Instructions: As directed tramadol 50 mg tablet 50 mg PO QID PRN (Reason: Pain) 14 Days Qty: 56 0RF clonidine HCl 0.1 mg Tablet 0.1 mg PO BID PRN (Reason: BLOOD PRESSURE) Protonix 40 mg Tablet,Delayed Release (Dr/Ec) 40 mg PO DAILY acetaminophen 500 mg Tablet 1,000 mg PO QID PRN (Reason: Pain) diphenhydramine HCl [Benadryl] 25 mg Capsule 75 mg PO BID PRN (Reason: Itching) cholecalciferol (vitamin D3) [Vitamin D3] 25 mcg (1,000 unit) Tablet 25 mcg PO DAILY amlodipine 5 mg Tablet 5 mg PO DAILY Qty: 30 0RF Discharge Orders: Discharge ED (Routine); Ordered 12/27/22 Ordered By: Alber Robles Referrals: Jane Dhaliwal [Primary Care Provider] - Discharge Diet: Advance as tolerated Discharge Activity: Resume usual activity 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
--- NOTE | 2022-12-27 14:09 | CT_ITS ---
WS: [id number] CTA HEAD AND NECK TECHNIQUE: Contrast enhanced CTA of the head and neck with coronal and sagittal reformatted images an d maximum intensity projection (MIP) images. NASCET criteria utilized. CLINICAL INFORMATION: Numbness weakness left upper extremity COMPARISON: None. DLP: 472.[address] scans at [facility] use at least one of these dose optimization techniques: automated e xposure control; mA and/or kV adjustment per patient size (includes targeted exams where dose is matc hed to clinical indication); or iterative reconstruction. FINDINGS: Chronic emphysematous changes in the lung apices. Aortic arch calcification. RIGHT: RIGHT common carotid artery is patent. No significant RIGHT ICA stenosis. RIGHT ICA is patent to the skull base. LEFT: LEFT common carotid artery is patent. No significant LEFT ICA stenosis. LEFT ICA is patent to t he skull base. INTRACRANIAL CTA: Mild intracranial atheromatous disease. Both vertebral arteries are patent. Proximal basilar artery is patent. Patent RIGHT posterior commu nicating artery. Normal vascularity to the DELIVER DRIVER territory bilaterally. Mild atheromatous disease both posterior cerebral arteries. Both ICAs are patent at the skull base. Cavernous carotid calcification. Normal vascularity to the AC A and MCA territories bilaterally. Patent anterior communicating artery. Small LEFT A1 segment. IMPRESSION: 1. No significant ICA stenosis bilaterally. Both ICAs are patent to the skull base. 2. Both vertebral arteries are patent. 3. No intracranial proximal flow limiting stenosis. 4. Mild intracranial atheromatous disease.
[2022-12-27] MEDS: iohexol 350 mg/mL 500 mL Btl (per mL) IV (14:23)
[2022-12-27 14:46] VITALS: BP 138/93; PULSE 70; O2SAT 97
[2022-12-27 14:57] VITALS: BP 138/93; PULSE 71; O2SAT 98
[2022-12-27 16:30] VITALS: BP 157/97; PULSE 75; O2SAT 97
== END 2022-12-27 17:18 | disposition home or self-care (01) ==
PROVIDERS: Emergency Provider Internal Medicine; PCP Internal Medicine
DX: G45.9 Transient cerebral ischemic attack, unspecified (principal); I10 Essential (primary) hypertension
CPT/HCPCS: 36416; 70450; 70496; 70498; 80053; 82962; 85025; 93005; 99285; Q9967

== ENCOUNTER → 2022-12-30 09:48 | Outpatient (BNVA) | payer MEDICARE, SELFPAY | PROVIDERS: PCP Internal Medicine; Visit Provider Student in an Organized Health Care Education/Training Program | DX: T81.30XA Disruption of wound, unspecified, initial encounter; M86.271 Subacute osteomyelitis, right ankle and foot; Y83.8 Other surgical procedures as the cause of abnormal reaction of the patient, or of later complication, without mention of misadventure at the time of the procedure | CPT/HCPCS: 99213 ==

== ENCOUNTER → 2023-08-24 14:44 | Outpatient (BNVA) | payer SELFPAY | PROVIDERS: PCP Internal Medicine; Visit Provider Physician Assistant | DX: M75.42 Impingement syndrome of left shoulder | CPT/HCPCS: 73030 ==

== ENCOUNTER 2024-09-13 05:35 | Emergency (ER) | payer MEDICARE, SELFPAY ==
[2024-09-13] VITALS (7 sets, daily range): BP systolic 131–149; BP diastolic 74–108; PULSE 99–109; RESP 17–19; TEMP 36.7; O2SAT 92–97; BMI 23.8
--- NOTE | 2024-09-13 05:43 | CTR_ITS ---
PROCEDURE INFORMATION: Exam: CT Abdomen And Pelvis With Contrast Exam date and time: 09/13/2024 6:33 AM Age: 74 years old Clinical indication: Abdominal pain; Localized; Right lower quadrant (rlq); Additional info: Rlq pain TECHNIQUE: Imaging protocol: Computed tomography of the abdomen and pelvis with contrast. Radiation optimization: All CT scans at this facility use at least one of these dose optimization techniques: automated exposure control; mA and/or kV adjustment per patient size (includes targeted exams where dose is matched to clinical indication); or iterative reconstruction. Contrast material: OMNI 350; Contrast volume: 100 ml; Contrast route: INTRAVENOUS (IV); COMPARISON: CR XR chest 1V portable [id number] 08/22/2022 8:49 PM RADIATION DOSE METRICS: Total DLP (mGy-cm): 575.86 FINDINGS: Pleural spaces: Large bilateral pleural effusions. Coronary arteries: Coronary calcifications are seen. Liver: Multiple hepatic lesions are seen. The largest is in the right hepatic lobe measuring 6.1 x 8.3 cm. Gallbladder and biliary ducts: Normal. No calcified stones. No ductal dilation. Pancreas: Normal. No ductal dilation. Spleen: Calcified splenic granulomas. Adrenal glands: Left adrenal gland 1 x 1.1 cm nodular lesion. Kidneys and ureters: 2 mm right renal stone. Right renal simple cysts. Largest measures 1.8 x 3.1 cm. Stomach and bowel: 1.2 x 1.3 cm lesion along the greater curvature of the stomach. Significant stool is seen at the rectal vault. There is change of colonic caliber at the sigmoid colon (). The same area has thickened colonic wall. Diffuse colonic stool material. Proximal colonic loops are dilated. No small bowel loop dilatation. Appendix: Appendix is normal. Intraperitoneal space: Small free pelvic fluid. Vasculature: Mild calcified atherosclerotic changes are seen throughout the abdominal aorta. Lymph nodes: Multiple enlarged upper abdominal lymph nodes are seen. Largest measures 2.2 x 1.4 cm. Enlarged para-aortic lymph node measuring 2.4 x 1.3 cm. Enlarged retrocrural lymph node measuring 1.7 x 1.9 cm. Urinary bladder: Unremarkable as visualized. Reproductive: Unremarkable as visualized. Bones/joints: Mild lumbar spine degenerative changes. Soft tissues: Generalized soft tissue anasarca. CT/CT abdomen pelvis w con* [id number] IMPRESSION: 1. Thickened colonic wall involving the sigmoid colon. Underlying mucosal lesion/malignancy can not be excluded. Clinical correlation is advised. 2. Colonic obstruction with a transitional point at the sigmoid colon. 3. 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 Peritoneal implant. 4. Multiple hepatic lesions are seen. The largest is in the right hepatic lobe measuring 6.1 x 8.3 cm. Findings suggest metastases. 5. Left adrenal gland 1 x 1.1 cm nodular lesion. 6. 2 mm right renal stone. 7. Coronary calcifications. 8. Mild calcified atherosclerotic changes are seen throughout the abdominal aorta. 9. Large bilateral pleural effusions. 10. Significant stool is seen at the rectal vault. Clinical correlation to exclude fecal impaction is advised. 11. Generalized soft tissue anasarca. 12. Mild lumbar spine degenerative changes. COMMENTS: Consistent with the [employer]'s Incidental Findings Committee white paper (J Am Dash Radiol 2018): Any incidental renal lesion less than 1 cm or classified as too small to characterize, or any incidental cystic renal lesion characterized as simple-appearing, is likely benign. No follow-up imaging is recommended for these lesions per consensus recommendations based on imaging criteria.
--- NOTE | 2024-09-13 05:45 | W.ED.ABDPA2 ---
Documented by User: Guillermo Velazquez MD 09/13/24 05:47 HPI - Abdominal Pain General: Chief Complaint: Abdominal Pain Stated Complaint: Abd Pain Time Seen by Provider: 09/13/24 05:41 History of Present Illness: 74-year-old male who presents to the emerged part with complaint of right lower quadrant abdominal pain that started about 2 days ago. No nausea vomiting or diarrhea or constipation. Denies any fever. Has had decreased p.o. intake and intentional weight loss of 100 pounds in the last 8 months. No history of abdominal surgeries. Patient's pain is resolved after receiving 200 mcg of fentanyl by EMS. Related Data Home Medications ?Medication ?Instructions ?Recorded ?Confirmed acetaminophen 500 mg tablet 1,000 mg PO QID PRN Pain 11/11/22 09/13/24 ergocalciferol (vitamin D2) 1,250 1,250 mcg PO Q7D 09/13/24 09/13/24 mcg (50,000 unit) capsule Previous Rx's ?Medication ?Instructions ?Recorded CAM BOOT #1 ea 11/25/22 tramadol 50 mg tablet 50 mg PO QID PRN Pain 14 days #56 11/28/22 tabs amlodipine 5 mg tablet (Norvasc) 5 mg PO DAILY #90 tabs 12/27/22 atropine 1 % eye drops 4 drp sublingual Q4H PRN 09/13/24 Secretions #5 mL bisacodyl 10 mg rectal suppository 10 mg MA DAILY PRN Constipation #5 09/13/24 (Dulcolax (bisacodyl)) ea diphenhydramine HCl 25 mg tablet 25 mg PO Q4H PRN Allergic Reaction 09/13/24 #5 tabs hydroxyzine HCl 25 mg tablet 25 mg PO TID PRN Itching #5 tabs 09/13/24 lorazepam 2 mg/mL oral concentrate 2 mg sublingual Q4H PRN 09/13/24 Anxiety/Seizure #30 mL morphine concentrate 100 mg/5 mL 20 mg sublingual DIRECTED PRN 09/13/24 (20 mg/mL) oral solution Pain/SOB 14 days #30 mL ondansetron 4 mg disintegrating 4 mg translingual Q4H PRN Nausea 09/13/24 tablet #5 tabs Allergies Allergy/AdvReac Type Severity Reaction Status Date / Time No Known Allergies Allergy Verified 08/24/23 15:31 [facility]: Medical History Hypertension Neuropathy Surgical History History of incision and drainage Family History Father Alcohol use disorder Denies family history of Diabetes Social History Smoking and tobacco/nicotine status: never used tobacco/nicotine Alcohol intake: never Substance/Drug Use: former Physical Exam Const: COMMON NORMALS: no acute distress, average body habitus, patient oriented x3, no limitations, healthy appearing, alert and well nourished Neck/C-Spine: COMMON NORMALS: no JVD Resp: COMMON NORMALS: normal respiratory effort, No retractions, No use of accessory muscles, clear to auscultation bilaterally and percussion normal AUSCULTATION: clear to auscultation bilaterally PERCUSSION: percussion normal Cardio: COMMON NORMALS: no JVD, regular rate, regular rhythm, S1 normal heart sound present, S2 normal heart sound present, No gallops present (Cardio), No clicks present (Cardio), No murmurs present (Cardio), No rub (Cardio) and Peripheral pulses 2+ throughout RATE: regular rate RHYTHM: regular rhythm HEART SOUNDS: S1 normal heart sound present and S2 normal heart sound present PERIPHERAL PULSES: Peripheral pulses 2+ throughout GI: COMMON NORMALS: Normal to inspection, nondistended, normoactive bowel sounds present, Soft to palpation, non-tender, No hepatosplenomegaly present, no masses and no bruits PALPATION: Yes Soft to palpation and Yes No hepatosplenomegaly present Neuro: COMMON NORMALS: patient oriented x3 SENSORIUM/ORIENTATION: Yes alert Skin: COMMON NORMALS: no rashes or lesions noted, no wounds, turgor normal, no jaundice, no petechiae and no mottling GENERAL SKIN EXAM: no rashes or lesions noted and turgor normal Course Vital Signs: Vital signs: Vital Signs Temperature 98.0 F 09/13/24 05:39 Pulse Rate 99 09/13/24 12:35 Respiratory Rate 17 09/13/24 11:05 Blood Pressure 136/98 09/13/24 12:35 Pulse Oximetry 97 09/13/24 12:35 Oxygen Delivery Me thod Room Air 09/13/24 09:12 MDM - Abdominal Pain Lab Data 09/13/24 05:30 09/13/24 05:30 Labs/Radiology: Radiology Impressions Abdomen/Pelvis CT 09/13/24 05:43 IMPRESSION: 1. Thickened colonic wall involving the sigmoid colon. Underlying mucosal lesion/malignancy can not be excluded. Clinical correlation is advised. 2. Colonic obstruction with a transitional point at the sigmoid colon. 3. 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 Peritoneal implant. 4. Multiple hepatic lesions are seen. The largest is in the right hepatic lobe measuring 6.1 x 8.3 cm. Findings suggest metastases. 5. Left adrenal gland 1 x 1.1 cm nodular lesion. 6. 2 mm right renal stone. 7. Coronary calcifications. 8. Mild calcified atherosclerotic changes are seen throughout the abdominal aorta. 9. Large bilateral pleural effusions. 10. Significant stool is seen at the rectal vault. Clinical correlation to exclude fecal impaction is advised. 11. Generalized soft tissue anasarca. 12. Mild lumbar spine degenerative changes. COMMENTS: Consistent with the [employer]'s Incidental Findings Committee white paper (J Am Dash Radiol 2018): Any incidental renal lesion less than 1 cm or classified as too small to characterize, or any incidental cystic renal lesion characterized as simple-appearing, is likely benign. No follow-up imaging is recommended for these lesions per consensus recommendations based on imaging criteria. ADDENDUM: 09/13/24 0750 COMMENT: THIS REPORT CONTAINS FINDINGS THAT MAY BE CRITICAL TO PATIENT CARE. The exam findings were verbally communicated by me to Dr. Romero via telephone conference at 7:48 AM CDT on 09/13/2024. The findings were acknowledged and understood. Chest CT 09/13/24 06:42 IMPRESSION: 1. Mediastinal adenopathy. Right chest pleural-based lesion. Findings suggest metastases. 2. Large bilateral pleural effusions. 3. Mild calcified atherosclerotic changes are seen in the thoracic aorta. 4. Coronary calcifications. 5. Mild diffuse thoracic spine degenerative changes. Laboratory Results WBC 15.39 10^3/uL (3.29-11.43) H 09/13/24 05:30 RBC 4.21 10^6/uL (3.85-5.65) 09/13/24 05:30 Hgb 12.80 g/dL (11.27-16.99) 09/13/24 05:30 Hct 40.3 % (37-53) 09/13/24 05:30 MCV 95.7 fl (82-101) 09/13/24 05:30 MCH 30.4 pg (27-33) 09/13/24 05:30 MCHC 31.8 g/dL (30-55) 09/13/24 05:30 RDW 14.7 % (12.1-15.1) 09/13/24 05:30 Plt Count 429 10^3/cmm (157-399) H 09/13/24 05:30 MPV 9.8 fL (7.4-10.4) 09/13/24 05:30 Neut % (Auto) 88.0 % 09/13/24 05:30 Lymph % (Auto) 4.6 % 09/13/24 05:30 [place] % (Auto) 6.8 % 09/13/24 05:30 Eos % (Auto) 0.0 % 09/13/24 05:30 Baso % (Auto) 0.1 % 09/13/24 05:30 Neut # (Auto) 13.54 10^3/uL (1.8-7.7) H 09/13/24 05:30 Lymph # (Auto) 0.7 10^3/uL (0.8-4.8) L 09/13/24 05:30 [place] # (Auto) 1.0 10^3/uL (0.2-0.9) H 09/13/24 05:30 Eos # (Auto) 0.0 10^3/uL (0.0-0.8) 09/13/24 05:30 Baso # (Auto) 0.0 10^3/uL (0.0-0.1) 09/13/24 05:30 Nucleated RBC % (auto) 0 % 09/13/24 05:30 Nucleated RBCs # 0.0 /100WBC 09/13/24 05:30 Sodium 133 mmol/L (136-145) L 09/13/24 05:30 Potassium 5.0 mmol/L (3.5-5.1) 09/13/24 05:30 Chloride 93 mmol/L (98-107) L 09/13/24 05:30 Carbon Dioxide 27 mmol/L (22-29) 09/13/24 05:30 Anion Gap 18.0 (5-19) 09/13/24 05:30 BUN 22 mg/dL (8-23) 09/13/24 05:30 Creatinine 0.8 mg/dL (0.7-1.2) 09/13/24 05:30 GFR Calculation Not Reportable 09/13/24 05:30 Glucose 185 mg/dL (65-115) H 09/13/24 05:30 Calculated Osmolality 284 mOsm/kg (285-295) L 09/13/24 05:30 Calcium 9.2 mg/dL (8.5-10.5) 09/13/24 05:30 Total Bilirubin 1.0 mg/dL (0.15-1.2) 09/13/24 05:30 AST 54 U/L (0-40) H 09/13/24 05:30 ALT 44 U/L (0-41) H 09/13/24 05:30 Alkaline Phosphatase 372 U/L (40-130) H 09/13/24 05:30 Total Protein 7.4 g/dL (6.6-8.7) 09/13/24 05:30 Albumin 3.4 g/dL (3.5-5.2) L 09/13/24 05:30 Globulin 4.0 g/dL (1.3-4.6) 09/13/24 05:30 Lipase 15 U/L (13-60) 09/13/24 05:30 Urine Color Dark yellow (Yellow) A 09/13/24 07:23 Urine Appearance Clear (CLEAR) 09/13/24 07:23 Urine pH 6.5 (5-7) 09/13/24 07:23 Ur Specific [place] 1.068 (1.005-1.030) H 09/13/24 07:23 Urine Protein 1+ (Negative) A 09/13/24 07:23 Urine Glucose (UA) Negative (Normal) 09/13/24 07:23 Urine Ketones Trace (Negative) 09/13/24 07: Urine Blood Negative (Negative) 09/13/24 07: Urine Nitrate Negative (Negative) 09/13/24 07:23 Urine Bilirubin 2+ (Negative) H 09/13/24 07:23 Urine Urobilinogen 2.0 mg/dL (Negative) H 09/13/24 07:23 Ur Leukocyte Esterase Trace (Negative) A 09/13/24 07:23 Urine RBC 0-2 /hpf (0-2) 09/13/24 07:23 Urine WBC 0-5 /hpf (0-5) 09/13/24 07:23 Ur Squamous Epith Cells 0-5 /hpf (0-5) 09/13/24 07:23 Amorphous Sediment Not Reportable 09/13/24 07:23 Urine Bacteria None seen /hpf (NONE) 09/13/24 07:23 Hyaline Casts 4.11 /lpf 09/13/24 07:23 Discharge Plan Discharge Patient Disposition: Home Clinical Impression: Obstruction of descending colon, Colon cancer metastasized to multiple sites Condition: Stable Prescriptions: New morphine concentrate 100 mg/5 mL (20 mg/mL) Solution 20 mg sublingual DIRECTED MDD N/A PRN (Reason: Pain/SOB) 14 Days Qty: 30 0RF Rx Instructions: 0.25ml-1ml q1H PRN may increase to 0.5ml-1ml Q1H PRN bisacodyl [Dulcolax (bisacodyl)] 10 mg Suppository 10 mg MA DAILY PRN (Reason: Constipation) Qty: 5 0RF Rx Instructions: 1 suppository per rectum every day PRN for constipation. diphenhydramine HCl 25 mg Tablet 25 mg PO Q4H PRN (Reason: Allergic Reaction) Qty: 5 0RF Rx Instructions: Take one tablet by mouth every 4 hours as needed for allergic reaction hydroxyzine HCl 25 mg Tablet 25 mg PO TID PRN (Reason: Itching) Qty: 5 0RF Rx Instructions: Take 1 tablet by mouth as needed three times a day for itching atropine 1 % Drops 4 drp sublingual Q4H PRN (Reason: Secretions) Qty: 5 0RF Rx Instructions: 4 drops SL q 4 hours PRN for terminal congestion/excessive secretions. ondansetron 4 mg Tablet,Disintegrating 4 mg translingual Q4H PRN (Reason: Nausea) Qty: 5 0RF Rx Instructions: Dissolve 1 tablet under tongue every 4 hours PRN for nausea lorazepam 2 mg/mL Concentrate 2 mg sublingual Q4H PRN (Reason: Anxiety/Seizure) Qty: 30 0RF Rx Instructions: 0.25ml-1ml q4H PRN Anxiety/Seizure Start 0.25ml may increase to 0.5ml-1ml q4H No Action (DME) CAM BOOT See Rx Instructions .Route .MEDSUPPLY Qty: 1 0RF Rx Instructions: As directed tramadol 50 mg tablet 50 mg PO QID PRN (Reason: Pain) 14 Days Qty: 56 0RF amlodipine [Norvasc] 5 mg tablet 5 mg PO DAILY Qty: 90 0RF ergocalciferol (vitamin D2) 1,250 mcg (50,000 unit) capsule 1,250 mcg PO Q7D acetaminophen 500 mg Tablet 1,000 mg PO QID PRN (Reason: Pain) Discharge Orders: Discharge ED (Routine); Ordered 09/13/24 Ordered By: Kali Romero Referrals: Jane Dhaliwal [Primary Care Provider] Discharge Diet: Clear Liquid Patient Instructions: Opioid Safety, Pain Management, Patient Portal & Theodore Instructions Activity Restrictions/Additional Instructions: [email or web address]. It is very important that you follow up as instructed or that you return to the Emergency Department should you have concerns or if your condition changes or worsens in any way. You were seen in the emergency room with unexplained weight loss and abdominal pain. Evaluation in the emergency room shows that you most likely have a colon cancer there is a lesion on the descending colon that appears to be obstructing your colon. In addition to this there is widespread metastasis to the lymph nodes of the abdomen to the liver to the lung and lymph nodes in the chest. We discussed treatment options. You elected to enroll in hospice. We have made the hospice referral and discharge home with appropriate medications for comfort care. Hospice will evaluate you in your home and discussion goals of care for comfort care. Print Language: [place]ian Sign Out Sign Out Data: Patient Sign Out occurred on 09/13/24 at 06:15. Patient's care was discussed, and care was transferred from Guillermo Velazquez MD to Kali Romero DO. Coding Level of Care Code ED Stacker And Sorter Operator for Chg Fwd Documented by User: Kali Romero DO 09/13/24 17:49 HPI - Abdominal Pain General: Chief Complaint: Abdominal Pain Stated Complaint: Abd Pain Time Seen by Provider: 09/13/24 05:41 Related Data Home Medications ?Medication ?Instructions ?Recorded ?Confirmed acetaminophen 500 mg tablet 1,000 mg PO QID PRN Pain 11/11/22 09/13/24 ergocalciferol (vitamin D2) 1,250 1,250 mcg PO Q7D 09/13/24 09/13/24 mcg (50,000 unit) capsule Previous Rx's ?Medication ?Instructions ?Recorded CAM BOOT #1 ea 11/25/22 tramadol 50 mg tablet 50 mg PO QID PRN Pain 14 days #56 11/28/22 tabs amlodipine 5 mg tablet (Norvasc) 5 mg PO DAILY #90 tabs 12/27/22 atropine 1 % eye drops 4 drp sublingual Q4H PRN 09/13/24 Secretions #5 mL bisacodyl 10 mg rectal suppository 10 mg MA DAILY PRN Constipation #5 09/13/24 (Dulcolax (bisacodyl)) ea diphenhydramine HCl 25 mg tablet 25 mg PO Q4H PRN Allergic Reaction 09/13/24 #5 tabs hydroxyzine HCl 25 mg tablet 25 mg PO TID PRN Itching #5 tabs 09/13/24 lorazepam 2 mg/mL oral concentrate 2 mg sublingual Q4H PRN 09/13/24 Anxiety/Seizure #30 mL morphine concentrate 100 mg/5 mL 20 mg sublingual DIRECTED PRN 09/13/24 (20 mg/mL) oral solution Pain/SOB 14 days #30 mL ondansetron 4 mg disintegrating 4 mg translingual Q4H PRN Nausea 09/13/24 tablet #5 tabs Allergies Allergy/AdvReac Type Severity Reaction Status Date / Time No Known Allergies Allergy Verified 08/24/23 15:31 PFSH ED PFSH: Medical History Hypertension Neuropathy Surgical History History of incision and drainage Family History Father Alcohol use disorder Denies family history of Diabetes Social History Smoking and tobacco/nicotine status: never used tobacco/nicotine Alcohol intake: never Substance/Drug Use: former Course Vital Signs: Vital signs: Vital Signs Temperature 98.0 F 09/13/24 05:39 Pulse Rate 99 09/13/24 12:35 Respiratory Rate 17 09/13/24 11:05 Blood Pressure 136/98 09/13/24 12:35 Pulse Oximetry 97 09/13/24 12:35 Oxygen Delivery Me thod Room Air 09/13/24 09:12 MDM - Abdominal Pain Medical Decision Making CT shows a obstruction proximal to the sigmoid colon and the descending colon. With his apple core lesion there he also has multiple metastasis in the liver throughout the abdominal lymph nodes mediastinum and some in the lungs. Discussed with the patient this is highly concerning for colon cancer and he likely does have colon cancer with widespread metastasis. Discussed with him that since we do not have adequate treatment here he would need to be transferred somewhere that he colonic stent could be placed to relieve the obstruction they could do biopsy and evaluate for treatment options. Patient and his significant other expressed understanding but states they have no desire to pursue any treatment. They feel since over health is declined so much in the last year they have had other friends and family who have had a advanced cancer diagnosis they do not wish to proceed with any treatment given their experience with others in the past. They instead are requesting to be placed on hospice. They understand that given his current condition he is likely to have a very rapid decline. Understanding this they still wish to be discharged home on hospice. We have made arrangements for medications and for hospice to evaluate them at their home. They are planning to seek skilled nursing care next week. Lab Data 09/13/24 05:30 09/13/24 05:30 Labs/Radiology: Radiology Impressions Abdomen/Pelvis CT 09/13/24 05:43 IMPRESSION: 1. Thickened colonic wall involving the sigmoid colon. Underlying mucosal lesion/malignancy can not be excluded. Clinical correlation is advised. 2. Colonic obstruction with a transitional point at the sigmoid colon. 3. 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 Peritoneal implant. 4. Multiple hepatic lesions are seen. The largest is in the right hepatic lobe measuring 6.1 x 8.3 cm. Findings suggest metastases. 5. Left adrenal gland 1 x 1.1 cm nodular lesion. 6. 2 mm right renal stone. 7. Coronary calcifications. 8. Mild calcified atherosclerotic changes are seen throughout the abdominal aorta. 9. Large bilateral pleural effusions. 10. Significant stool is seen at the rectal vault. Clinical correlation to exclude fecal impaction is advised. 11. Generalized soft tissue anasarca. 12. Mild lumbar spine degenerative changes. COMMENTS: Consistent with the [employer]'s Incidental Findings Committee white paper (J Am Dash Radiol 2018): Any incidental renal lesion less than 1 cm or classified as too small to characterize, or any incidental cystic renal lesion characterized as simple-appearing, is likely benign. No follow-up imaging is recommended for these lesions per consensus recommendations based on imaging criteria. ADDENDUM: 09/13/24 0750 COMMENT: THIS REPORT CONTAINS FINDINGS THAT MAY BE CRITICAL TO PATIENT CARE. The exam findings were verbally communicated by me to Dr. Romero via telephone conference at 7:48 AM CDT on 09/13/2024. The findings were acknowledged and understood. Chest CT 09/13/24 06:42 IMPRESSION: 1. Mediastinal adenopathy. Right chest pleural-based lesion. Findings suggest metastases. 2. Large bilateral pleural effusions. 3. Mild calcified atherosclerotic changes are seen in the thoracic aorta. 4. Coronary calcifications. 5. Mild diffuse thoracic spine degenerative changes. Laboratory Results WBC 15.39 10^3/uL (3.29-11.43) H 09/13/24 05:30 RBC 4.21 10^6/uL (3.85-5.65) 09/13/24 05:30 Hgb 12.80 g/dL (11.27-16.99) 09/13/24 05:30 Hct 40.3 % (37-53) 09/13/24 05:30 MCV 95.7 fl (82-101) 09/13/24 05:30 MCH 30.4 pg (27-33) 09/13/24 05:30 MCHC 31.8 g/dL (30-55) 09/13/24 05:30 RDW 14.7 % (12.1-15.1) 09/13/24 05:30 Plt Count 429 10^3/cmm (157-399) H 09/13/24 05:30 MPV 9.8 fL (7.4-10.4) 09/13/24 05:30 Neut % (Auto) 88.0 % 09/13/24 05:30 Lymph % (Auto) 4.6 % 09/13/24 05:30 [place] % (Auto) 6.8 % 09/13/24 05:30 Eos % (Auto) 0.0 % 09/13/24 05:30 Baso % (Auto) 0.1 % 09/13/24 05:30 Neut # (Auto) 13.54 10^3/uL (1.8-7.7) H 09/13/24 05:30 Lymph # (Auto) 0.7 10^3/uL (0.8-4.8) L 09/13/24 05:30 [place] # (Auto) 1.0 10^3/uL (0.2-0.9) H 09/13/24 05:30 Eos # (Auto) 0.0 10^3/uL (0.0-0.8) 09/13/24 05:30 Baso # (Auto) 0.0 10^3/uL (0.0-0.1) 09/13/24 05:30 Nucleated RBC % (auto) 0 % 09/13/24 05:30 Nucleated RBCs # 0.0 /100WBC 09/13/24 05:30 Sodium 133 mmol/L (136-145) L 09/13/24 05:30 Potassium 5.0 mmol/L (3.5-5.1) 09/13/24 05:30 Chloride 93 mmol/L (98-107) L 09/13/24 05:30 Carbon Dioxide 27 mmol/L (22-29) 09/13/24 05:30 Anion Gap 18.0 (5-19) 09/13/24 05:30 BUN 22 mg/dL (8-23) 09/13/24 05:30 Creatinine 0.8 mg/dL (0.7-1.2) 09/13/24 05:30 GFR Calculation Not Reportable 09/13/24 05:30 Glucose 185 mg/dL (65-115) H 09/13/24 05:30 Calculated Osmolality 284 mOsm/kg (285-295) L 09/13/24 05:30 Calcium 9.2 mg/dL (8.5-10.5) 09/13/24 05:30 Total Bilirubin 1.0 mg/dL (0.15-1.2) 09/13/24 05:30 AST 54 U/L (0-40) H 09/13/24 05:30 ALT 44 U/L (0-41) H 09/13/24 05:30 Alkaline Phosphatase 372 U/L (40-130) H 09/13/24 05:30 Total Protein 7.4 g/dL (6.6-8.7) 09/13/24 05:30 Albumin 3.4 g/dL (3.5-5.2) L 09/13/24 05:30 Globulin 4.0 g/dL (1.3-4.6) 09/13/24 05:30 Lipase 15 U/L (13-60) 09/13/24 05:30 Urine Color Dark yellow (Yellow) A 09/13/24 07:23 Urine Appearance Clear (CLEAR) 09/13/24 07:23 Urine pH 6.5 (5-7) 09/13/24 07:23 Ur Specific [place] 1.068 (1.005-1.030) H 09/13/24 07:23 Urine Protein 1+ (Negative) A 09/13/24 07:23 Urine Glucose (UA) Negative (Normal) 09/13/24 07:23 Urine Ketones Trace (Negative) 09/13/24 07:23 Urine Blood Negative (Negative) 09/13/24 07:23 Urine Nitrate Negative (Negative) 09/13/24 07:23 Urine Bilirubin 2+ (Negative) H 09/13/24 07:23 Urine Urobilinogen 2.0 mg/dL (Negative) H 09/13/24 07:23 Ur Leukocyte Esterase Trace (Negative) A 09/13/24 07:23 Urine RBC 0-2 /hpf (0-2) 09/13/24 07:23 Urine WBC 0-5 /hpf (0-5) 09/13/24 07:23 Ur Squamous Epith Cells 0-5 /hpf (0-5) 09/13/24 07:23 Amorphous Sediment Not Reportable 09/13/24 07:23 Urine Bacteria None seen /hpf (NONE) 09/13/24 07:23 Hyaline Casts 4.11 /lpf 09/13/24 07:23 All radiology interpretation(s) finalized by discharge Discharge Plan Discharge Patient Disposition: Home Clinical Impression: Obstruction of descending colon, Colon cancer metastasized to multiple sites Condition: Stable Prescriptions: New morphine concentrate 100 mg/5 mL (20 mg/mL) Solution 20 mg sublingual DIRECTED MDD N/A PRN (Reason: Pain/SOB) 14 Days Qty: 30 0RF Rx Instructions: 0.25ml-1ml q1H PRN may increase to 0.5ml-1ml Q1H PRN bisacodyl [Dulcolax (bisacodyl)] 10 mg Suppository 10 mg MA DAILY PRN (Reason: Constipation) Qty: 5 0RF Rx Instructions: 1 suppository per rectum every day PRN for constipation. diphenhydramine HCl 25 mg Tablet 25 mg PO Q4H PRN (Reason: Allergic Reaction) Qty: 5 0RF Rx Instructions: Take one tablet by mouth every 4 hours as needed for allergic reaction hydroxyzine HCl 25 mg Tablet 25 mg PO TID PRN (Reason: Itching) Qty: 5 0RF Rx Instructions: Take 1 tablet by mouth as needed three times a day for itching atropine 1 % Drops 4 drp sublingual Q4H PRN (Reason: Secretions) Qty: 5 0RF Rx Instructions: 4 drops SL q 4 hours PRN for terminal congestion/excessive secretions. ondansetron 4 mg Tablet,Disintegrating 4 mg translingual Q4H PRN (Reason: Nausea) Qty: 5 0RF Rx Instructions: Dissolve 1 tablet under tongue every 4 hours PRN for nausea lorazepam 2 mg/mL Concentrate 2 mg sublingual Q4H PRN (Reason: Anxiety/Seizure) Qty: 30 0RF Rx Instructions: 0.25ml-1ml q4H PRN Anxiety/Seizure Start 0.25ml may increase to 0.5ml-1ml q4H No Action (DME) CAM BOOT See Rx Instructions .Route .MEDSUPPLY Qty: 1 0RF Rx Instructions: As directed tramadol 50 mg tablet 50 mg PO QID PRN (Reason: Pain) 14 Days Qty: 56 0RF amlodipine [Norvasc] 5 mg tablet 5 mg PO DAILY Qty: 90 0RF ergocalciferol (vitamin D2) 1,250 mcg (50,000 unit) capsule 1,250 mcg PO Q7D acetaminophen 500 mg Tablet 1,000 mg PO QID PRN (Reason: Pain) Discharge Orders: Discharge ED (Routine); Ordered 09/13/24 Ordered By: Kali Romero Referrals: Jane Dhaliwal [Primary Care Provider] Discharge Diet: Clear Liquid Patient Instructions: Opioid Safety, Pain Management, Patient Portal & Theodore Instructions Activity Restrictions/Additional Instructions: [email or web address]. It is very important that you follow up as instructed or that you return to the Emergency Department should you have concerns or if your condition changes or worsens in any way. You were seen in the emergency room with unexplained weight loss and abdominal pain. Evaluation in the emergency room shows that you most likely have a colon cancer there is a lesion on the descending colon that appears to be obstructing your colon. In addition to this there is widespread metastasis to the lymph nodes of the abdomen to the liver to the lung and lymph nodes in the chest. We discussed treatment options. You elected to enroll in hospice. We have made the hospice referral and discharge home with appropriate medications for comfort care. Hospice will evaluate you in your home and discussion goals of care for comfort care. Print Language: [place]ian Sign Out Sign Out Data: Patient Sign Out occurred on 09/13/24 at 06:15. Patient's care was discussed, and care was transferred from Guillermo Velazquez MD to Kali Romero DO. Coding Level of Care Code ED Stacker And Sorter Operator for Gina Caballero
--- OUTSIDE RECORDS SUMMARY | 2024-09-13 05:46 | XMS_ITS | Clinical Summary ---
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
--- OUTSIDE RECORDS SUMMARY | 2024-09-13 05:46 | XMS_ITS | Encounter Summary ---
Author Organization [facility] Address [address] [place] [address] Care Team Providers Care Automation Machine Builder Name Role Phone Unavailable Primary Care Provider Unavailabl e Encounter Details Date Type Department Care Team (Latest Contact Info) Description 04/05/1999 Outpatient Historical [facility] Todd Jones NO ADDRESS ON FILE Closed dislocation of acromioclavicular (joint) (Primary Dx); Unspecified part of closed fracture of clavicle Social History Tobacco Use Types Packs/Day Years Used Date Smoking Tobacco: Never Assessed Sex and Gender Information Value Date Recorded Sex Assigned at Not on file 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
--- OUTSIDE RECORDS SUMMARY | 2024-09-13 05:46 | XMS_ITS | Clinical Summary ---
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
--- OUTSIDE RECORDS SUMMARY | 2024-09-13 05:46 | XMS_ITS | Patient Health Record ---
Author Organization [facility] Address [address] [place] [address] Care Team Providers Care Map Mounter Name Role Phone Anthony Sheppard [phone] Reason For Referral No Information Medications Medication SIG (Take, Route, Frequency, Duration) Notes Start Date End Date Status Gabapentin 800 MG Take 1 tablet(s) by mouth hs Oral for 30 Gabapentin 800mg Tablet Take 1 tablet(s) by mouth hs #30 (Thirty) tablet(s) 09/21/2011 Active metFORMIN HCl 500 MG 1 tab with supper Oral for 30 Metformin HCl 500mg Tablet 1 tab with supper #30 (Thirty) tablet(s) 04/29/2011 Active Phenytoin Sodium Extended 100 MG Take 4 cap by mouth q hs Oral for 30 Phenytoin Sodium, Extended 100mg Capsules, Extended Release Take 4 cap by mouth q hs #160 (One [place] and Sixty) capsule(s) 04/08/2011 Active Crestor 10 MG Take 1 tablet(s) po q hs Oral for 30 Crestor (Rosuvastatin) 10mg Tablet Take 1 tablet(s) po q hs #30 (Thirty) tablet(s) 09/21/2011 Active Problems Problem Type SNOMED Code ICD Code Onset Dates Problem Status W/U Status Risk Notes Problem Fatigue (67956952) Fatigue (780.79) 11/02 Active confirmed [id number]- Problem Localized, 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) Knee DJD (715.16) 2011 Active confirmed [id number]- Problem 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 Active confirmed [id number]- Problem Essential hypertension (58069579) Essential hypertension (401.1) 2011 Active confirmed [id number]- Problem Type II Diabetes Mellitus without complication (953743469) NIDDM (250.00) 2011 Active confirmed [id number]- Problem Seborrhea (15803828) Seborrhea (706.3) 2016 Problem resolved confirmed [id number]- Problem Androgen deficiency (47013819) Testosterone deficiency (257.2) 2011 Problem resolved confirmed [id number]- Problem Hyperlipidemia (76551156) Hyperlipidemia (272.4) 2016 Problem resolved confirmed [id number]- Problem Screening for malignant neoplasm of colon (084106679) Screening for cancer of colon (V76.51) 2016 Problem resolved confirmed [id number]- Problem Allergic rhinitis caused by pollen (14114982) Allergies (477.0) 2016 Problem resolved confirmed [id number]- Problem Intermittent claudication due to atherosclerosis of [place] artery of limb (9855832768450) Intermittent claudication secondary to arteriosclerosis (440.21) 2016 Problem resolved confirmed [id number]- Problem Foot pain (18753491) Foot pain (729.5) 2016 Problem resolved confirmed [id number]- Problem Hypertriglyceridemia (873626284) Hypertriglyceridemia (272.1) 2011 Problem resolved confirmed [id number]- Problem Screening for malignant neoplasm of colon (983111995) Screening for colorectal cancer (V76.49) 2016 Problem resolved confirmed [id number]- Problem Needs influenza immunization (794348705) Vaccination against other viral diseases, Influenza (V04.81) 2016 Problem resolved confirmed [id number]- Problem Osteoarthritis of shoulder (85255831) 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) 2017 Problem resolved confirmed [id number]- Problem Erectile dysfunction (924166644) Erectile dysfunction (302.72) 2011 Problem resolved confirmed [id number]- Problem Type II diabetes mellitus uncontrolled (423840442) Type II diabetes, uncontrolled (250.02) 2016 Problem resolved confirmed [id number]- Problem Hip pain (99300395) Hip pain (719.45) 2016 Problem resolved confirmed [id number]- Problem Pedal edema (836306895) Pedal edema (782.3) 2016 Problem resolved confirmed [id number]- Problem Type II diabetes mellitus without complication (990557488) Type 2 diabetes (250.00) 2016 Problem resolved confirmed [id number]- Plan Of Treatment No Information Medical (General) History Surgical History Surgery Date(Month/Year) NONE
[2024-09-13 05:57] LABS: Hematocrit 40.3 % (37-53); Hemoglobin 12.80 g/dL (11.27-16.99); Mean Corpuscular HGB Conc 31.8 g/dL (30-55); Mean Corpuscular Hemoglobin 30.4 pg (27-33); Mean Corpuscular Volume 95.7 fl (82-101); Nucleated Red Blood Cells % 0 %; Platelet Count 429 10^3/cmm (157-399); Red Blood Count 4.21 10^6/uL (3.85-5.65); White Blood Count 15.39 10^3/uL (3.29-11.43)
[2024-09-13 06:15] LABS: Alanine Aminotransferase 44 U/L (0-41); Albumin Level 3.4 g/dL (3.5-5.2); Alkaline Phosphatase 372 U/L (40-130); Anion Gap 18.0 (5-19); Aspartate Amino Transferase 54 U/L (0-40); Blood Urea Nitrogen 22 mg/dL (8-23); Calcium 9.2 mg/dL (8.5-10.5); Carbon Dioxide 27 mmol/L (22-29); Chloride 93 mmol/L (98-107); Creatinine Clr Calc Pharmacy 88.5363; Globulin 4.0 g/dL (1.3-4.6); Glucose 185 mg/dL (65-115); Lipase 15 U/L (13-60); Osmolality Calculated 284 mOsm/kg (285-295); Potassium 5.0 mmol/L (3.5-5.1); Sodium 133 mmol/L (136-145); Total Protein 7.4 g/dL (6.6-8.7)
[2024-09-13] MEDS: iohexol 350 mg/mL 500 mL Btl (per mL) IV ×2 (06:36→06:44)
--- NOTE | 2024-09-13 06:42 | CTR_ITS ---
PROCEDURE INFORMATION: Exam: CT Chest With Contrast; Diagnostic Exam date and time: 09/13/2024 6:38 AM Age: 74 years old Clinical indication: Shortness of breath; Additional info: SOB TECHNIQUE: Imaging protocol: Diagnostic computed tomography of the chest with contrast. Radiation optimization: All CT scans at this facility use at least one of these dose optimization techniques: automated exposure control; mA and/or kV adjustment per patient size (includes targeted exams where dose is matched to clinical indication); or iterative reconstruction. Contrast material: OMNI 350; Contrast volume: 75 ml; Contrast route: INTRAVENOUS (IV); COMPARISON: CR XR chest 1V portable [id number] 08/22/2022 8:49 PM RADIATION DOSE METRICS: Total DLP (mGy-cm): 407.08 FINDINGS: Lungs: Unremarkable. No consolidation. No masses. Pleural spaces: Large bilateral pleural effusions. There is a chest pleural-based lesion measuring 1.3 x 2 cm. Heart: Unremarkable. No cardiomegaly. No pericardial effusion. Coronary arteries: Coronary calcifications are seen. Lymph nodes: There are enlarged mediastinal lymph nodes. Largest measures 2.1 x 1.6 cm. Vasculature: Mild calcified atherosclerotic changes are seen in the thoracic aorta. Bones/joints: Mild diffuse thoracic spine degenerative changes. Soft tissues: Unremarkable. CT/CT chest w con* [id number] IMPRESSION: 1. Mediastinal adenopathy. Right chest pleural-based lesion. Findings suggest metastases. 2. Large bilateral pleural effusions. 3. Mild calcified atherosclerotic changes are seen in the thoracic aorta. 4. Coronary calcifications. 5. Mild diffuse thoracic spine degenerative changes.
[2024-09-13] MEDS: morphine 4 mg/mL SDV 1 mL 2 MG IVP (07:36)
[2024-09-13 07:37] LABS: Glucose Urine UA Negative (Normal); Nitrate Urine Negative (Negative)
[2024-09-13 07:42] LABS: Add Urine Microscopic? YES
[2024-09-13 08:11] LABS: Specific Gravity, Urine 1.068 (1.005-1.030); UA Slide Review UA Slide Review Perf
[2024-09-13] MEDS: fentaNYL 50 mcg/mL INJ 2mL 25 MCG IVP ×2 (09:22→11:05)
== END 2024-09-13 12:40 | disposition home or self-care (01) ==
PROVIDERS: Emergency Medicine; Emergency Provider Family Medicine; PCP Internal Medicine
DX: K56.609 Unspecified intestinal obstruction, unspecified as to partial versus complete obstruction (principal); I10 Essential (primary) hypertension; C18.7 Malignant neoplasm of sigmoid colon; C78.7 Secondary malignant neoplasm of liver and intrahepatic bile duct; C77.2 Secondary and unspecified malignant neoplasm of intra-abdominal lymph nodes
CPT/HCPCS: 71260; 74177; 80053; 81001; 83690; 85025; 96374; 96375; 96376; 99285; J2270; J3010